=== PATIENT | female | born 1940 | race Caucasian/White ===

== ENCOUNTER 2016-08-23 10:55 | Emergency (ER) | payer MEDICARE, OTHER ==
[2016-08-23] MEDS ORDERED: Sodium Chloride 0.9% 2.5 ML Syringe FLUSH PRN ×2 (11:16)
[2016-08-23] MEDS ORDERED: Sodium Chloride 0.9% 10 ML Syringe FLUSH PRN ×2 (11:16)
[2016-08-23] MEDS ORDERED: Sodium Chloride 0.9% 1,000 ML IV ONE (11:16)
--- NOTE | 2016-08-23 11:18 | EDM.PDOC ---
ED HPI GENERAL MEDICAL PROBLEM - General Chief Complaint: Neuro Symptoms/Deficits Stated Complaint: DIZZY Time Seen by Provider: 08/23/16 11:15 Source of Information: Reports: Patient History Limitations: Reports: No Limitations - History of Present Illness INITIAL COMMENTS - FREE TEXT/NARRATIVE: HISTORY AND PHYSICAL: History of present illness: [75-year-old female complaining of dizziness with room spinning today. She has no prior history of vertigo. She has no cold symptoms or ear pain. Symptoms started today and it's worse when she moves her head. She has no history of intracranial pathology. Patient otherwise feels well. No chest pain or shortness of breath.] Review of systems: As per history of present illness and below otherwise all systems reviewed and negative. Past medical history: As per history of present illness and as reviewed below otherwise noncontributory. Surgical history: As per history of present illness and as reviewed below otherwise noncontributory. Social history: No reported history of drug or alcohol abuse. Family history: As per history of present illness and as reviewed below otherwise noncontributory. Physical exam: HEENT: Atraumatic, normocephalic, pupils reactive, negative for conjunctival pallor or scleral icterus, mucous membranes moist, throat clear, neck supple, nontender, trachea midline. Lungs: Clear to auscultation, breath sounds equal bilaterally, chest nontender. Heart: S1S2, regular, negative for clicks, rubs, or JVD. Abdomen: Soft, nondistended, nontender. Negative for masses or hepatosplenomegaly. Negative for costovertebral tenderness. Pelvis: Stable nontender. Genitourinary: Deferred. Rectal: Deferred. Extremities: Atraumatic, negative for cords or calf pain. Neurovascular unremarkable. Neuro: Awake, alert, oriented. Cranial nerves II through XII unremarkable. Cerebellum unremarkable. Motor and sensory unremarkable throughout. Exam nonfocal. Diagnostics: [EKG with normal sinus rhythm at 67 LAD no STEMI] Chest x-ray no acute disease report reviewed Therapeutics: [Meclizine given] Impression: [] Plan: Signs and symptoms consistent with peripheral vertigo in a patient with reproducible dizziness. Full workup unremarkable. CT pending. If unremarkable patient agrees with outpatient follow-up meclizine will be prescribed and strict return precautions given. Vital signs are stable for outpatient follow- up.] Definitive disposition and diagnosis as appropriate pending reevaluation and review of above. - Related Data Allergies Allergy/AdvReac Type Severity Reaction Status Date / Time dimenhydrinate Allergy Itching Verified 08/23/16 11:14 [From Dramamine] naproxen Allergy Itching Verified 08/23/16 11:14 Penicillins Allergy Itching Verified 08/23/16 11:14 Home Meds: Home Meds Aspirin [Shelia Chewable Aspirin] 81 mg PO DAILY 09/02/13 [History] Clopidogrel [Plavix] 75 mg PO DAILY 09/02/13 [History] Rosuvastatin [Crestor] 5 mg PO BEDTIME 09/02/13 [History] amLODIPine/Benazepril [Lotrel 5-10 MG] 1 cap PO DAILY 09/02/13 [History] Cholecalciferol (Vitamin D3) [Vitamin D3] 5,000 unit PO DAILY 05/23/15 [History] Cream Base No.193 [Versatile] 500 gm TP BID 05/23/15 [History] Docusate Sodium [Stool Softener] 100 mg PO DAILY PRN 05/23/15 [History] Escitalopram Oxalate 10 mg PO DAILY 05/23/15 [History] traZODone 100 mg PO BEDTIME PRN 05/23/15 [History] Cyclobenzaprine [Flexeril] 1 tab PO BEDTIME PRN 12/24/15 [History] Meclizine [Antivert] 25 mg PO Q6H PRN #24 tablet 08/23/16 [Rx] Past Medical History HEENT History: Reports: Cataract, Sinusitis Cardiovascular History: Reports: High Cholesterol, Hypertension Respiratory History: Reports: None Gastrointestinal History: Reports: Cholelithiasis Genitourinary History: Reports: None 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: Musculoskeletal History: Reports: Arthritis Neurological History: Reports: TIA Psychiatric History: Reports: Depression Endocrine/Metabolic History: Reports: Osteoporosis Hematologic History: Reports: None Immunologic History: Reports: None Oncologic (Cancer) History: Reports: None Dermatologic History: Reports: None - Infectious Disease History Infectious Disease History: Reports: None - Past Surgical History HEENT Surgical History: Reports: Cataract Surgery GI Surgical History: Reports: Other (See Below) Musculoskeletal Surgical History: Reports: Joint Replacement, Other (See Below) Social & Family History - Family History Family Medical History: Noncontributory Oncologic: Reports: Other (See Below) Other Oncologic Family History: stomach - Tobacco Use Smoking Status *Q: Never Smoker Years of Tobacco use: 40 Second Hand Smoke Exposure: No - Caffeine Use Caffeine Use: Reports: None - Recreational Drug Use Recreational Drug Use: No ED ROS GENERAL - Review of Systems Review Of Systems: See Below (History of present illness) ED EXAM, GENERAL - Physical Exam Exam: See Below (History of present illness) Course - Vital Signs Last Recorded V/S: Last Vital Signs Temp 36.7 C 08/23/16 11:14 Pulse 65 08/23/16 12:24 Resp 20 08/23/16 12:24 BP 101/58 L 08/23/16 12:24 Pulse Ox 94 L 08/23/16 12:24 - Orders/Labs/Meds Orders: Active Orders 24 hr Category Date Time Status EKG Documentation Completion [RC] STAT Care 08/23/16 11:16 Active Peripheral IV Care [RC] . DIRECTED Care 08/23/16 11:16 Active Head wo Cont [CT] Stat Exams 08/23/16 13:08 Ordered Sodium Chloride 0.9% [Saline Flush] Med 08/23/16 11:16 Active 10 ml FLUSH ASDIRECTED PRN Sodium Chloride 0.9% [Saline Flush] Med 08/23/16 11:16 Active 10 ml FLUSH ASDIRECTED PRN Sodium Chloride 0.9% [Saline Flush] Med 08/23/16 11:16 Active 2.5 ml FLUSH ASDIRECTED PRN Sodium Chloride 0.9% [Saline Flush] Med 08/23/16 11:16 Active 2.5 ml FLUSH ASDIRECTED PRN Peripheral IV Insertion Adult [OM.PC] Stat Oth 08/23/16 11:16 Ordered Medication Orders Sodium Chloride (Saline Flush) 10 ml FLUSH ASDIRECTED PRN PRN Reason: Keep Vein Open Sodium Chloride (Saline Flush) 2.5 ml FLUSH ASDIRECTED PRN PRN Reason: Keep Vein Open Sodium Chloride (Saline Flush) 10 ml FLUSH ASDIRECTED PRN PRN Reason: Keep Vein Open Sodium Chloride (Saline Flush) 2.5 ml FLUSH ASDIRECTED PRN PRN Reason: Keep Vein Open Labs: Laboratory Tests 08/23/16 08/23/16 08/23/16 Range/Units 11:26 11:26 11:26 WBC 6.02 (4.0-11.0) K/uL RBC 4.96 (4.30-5.90) M/uL Hgb 14.3 (12.0-16.0) g/dL Hct 43.2 (36.0-46.0) % MCV 87.1 (80.0-98.0) fL MCH 28.8 (27.0-32.0) pg MCHC 33.1 (31.0-37.0) g/dL RDW Std Deviation 50.3 (28.0-62.0) fl RDW Coeff of Yaneth 16 H (11.0-15.0) % Plt Count 266 (150-400) K/uL MPV 9.70 (7.40-12.00) fL Neut % (Auto) 60.4 (48.0-80.0) % Lymph % (Auto) 31.6 (16.0-40.0) % [place] % (Auto) 5.3 (0.0-15.0) % Eos % (Auto) 1.7 (0.0-7.0) % Baso % (Auto) 1.0 (0.0-1.5) % Neut # (Auto) 3.6 (1.4-5.7) K/uL Lymph # (Auto) 1.9 (0.6-2.4) K/uL [place] # (Auto) 0.3 (0.0-0.8) K/uL Eos # (Auto) 0.1 (0.0-0.7) K/uL Baso # (Auto) 0.1 (0.0-0.1) K/uL Nucleated RBC % 0.0 /100WBC Nucleated RBCs # 0 K/uL Sodium 140 (136-146) mmol/L Potassium 3.7 (3.5-5.1) mmol/L Chloride 108 (98-110) mmol/L Carbon Dioxide 23 (21-31) mmol/L BUN 11 (6.0-23.0) mg/dL Creatinine 0.8 (0.6-1.5) mg/dL Est Cr Clr Drug Dosing 58.63 mL/min Estimated GFR (MDRD) > 60.0 ml/min Glucose 111 H (60-110) mg/dL Calcium 9.1 (8.8-10.8) mg/dL Total Bilirubin 0.5 (0.1-1.5) mg/dL AST 20 (5-40) IU/L ALT 17 (8-54) IU/L Alkaline Phosphatase 71 (40-150) Troponin I < 0.10 (0.0-0.29) NG/ML Total Protein 7.6 (6.0-8.0) g/dL Albumin 4.5 (3.4-4.8) g/dL Globulin 3.1 (2.0-3.5) g/dL Albumin/Globulin Ratio 1.5 (1.3-2.8) Urine Color Urine Appearance Urine pH (5.0-8.0) Ur Specific [place] (1.001-1.035) Urine Protein (NEGATIVE) mg/dL Urine Glucose (UA) (NEGATIVE) mg/dL Urine Ketones (NEGATIVE) mg/dL Urine Occult Blood (NEGATIVE) Urine Nitrite (NEGATIVE) Urine Bilirubin (NEGATIVE) Urine Urobilinogen (<2.0) EU/dL Ur Leukocyte Esterase (NEGATIVE) Urine RBC (0-2/HPF) Urine WBC (0-5/HPF) Ur Epithelial Cells (NONE-FEW) Urine Bacteria (NEGATIVE) 08/23/16 Range/Units 12:28 WBC (4.0-11.0) K/uL RBC (4.30-5.90) M/uL Hgb (12.0-16.0) g/dL Hct (36.0-46.0) % MCV (80.0-98.0) fL MCH (27.0-32.0) pg MCHC (31.0-37.0) g/dL RDW Std Deviation (28.0-62.0) fl RDW Coeff of [place] (11.0-15.0) % Plt Count (150-400) K/uL MPV (7.40-12.00) fL Neut % (Auto) (48.0-80.0) % Lymph % (Auto) (16.0-40.0) % [place] % (Auto) (0.0-15.0) % Eos % (Auto) (0.0-7.0) % Baso % (Auto) (0.0-1.5) % Neut # (Auto) (1.4-5.7) K/uL Lymph # (Auto) (0.6-2.4) K/uL [place] # (Auto) (0.0-0.8) K/uL Eos # (Auto) (0.0-0.7) K/uL Baso # (Auto) (0.0-0.1) K/uL Nucleated RBC % /100WBC Nucleated RBCs # K/uL Sodium (136-146) mmol/L Potassium (3.5-5.1) mmol/L Chloride (98-110) mmol/L Carbon Dioxide (21-31) mmol/L BUN (6.0-23.0) mg/dL Creatinine (0.6-1.5) mg/dL Est Cr Clr Drug Dosing mL/min Estimated GFR (MDRD) ml/min Glucose (60-110) mg/dL Calcium (8.8-10.8) mg/dL Total Bilirubin (0.1-1.5) mg/dL AST (5-40) IU/L ALT (8-54) IU/L Alkaline Phosphatase (40-150) Troponin I (0.0-0.29) NG/ML Total Protein (6.0-8.0) g/dL Albumin (3.4-4.8) g/dL Globulin (2.0-3.5) g/dL Albumin/Globulin Ratio (1.3-2.8) Urine Color YELLOW Urine Appearance CLEAR Urine pH 5.5 (5.0-8.0) Ur Specific [place] <= 1.005 (1.001-1.035) Urine Protein NEGATIVE (NEGATIVE) mg/dL Urine Glucose (UA) NEGATIVE (NEGATIVE) mg/dL Urine Ketones NEGATIVE (NEGATIVE) mg/dL Urine Occult Blood NEGATIVE (NEGATIVE) Urine Nitrite NEGATIVE (NEGATIVE) Urine Bilirubin NEGATIVE (NEGATIVE) Urine Urobilinogen 0.2 (<2.0) EU/dL Ur Leukocyte Esterase NEGATIVE (NEGATIVE) Urine RBC 0-2 (0-2/HPF) Urine WBC 0-1 (0-5/HPF) Ur Epithelial Cells FEW (NONE-FEW) Urine Bacteria FEW (NEGATIVE) Meds: Medications Generic Name Dose Route Start Last Admin Trade Name Freq PRN Reason Stop Dose Admin Sodium Chloride 10 ml 08/23/16 11:16 Saline Flush FLUSH ASDIRECTED PRN Keep Vein Open Sodium Chloride 2.5 ml 08/23/16 11:16 Saline Flush FLUSH ASDIRECTED PRN Keep Vein Open Sodium Chloride 10 ml 08/23/16 11:16 Saline Flush FLUSH ASDIRECTED PRN Keep Vein Open Sodium Chloride 2.5 ml 08/23/16 11:16 Saline Flush FLUSH ASDIRECTED PRN Keep Vein Open Discontinued Medications Generic Name Dose Route Start Last Admin Trade Name Philip PRN Reason Stop Dose Admin Sodium Chloride 1,000 mls @ 999 mls/hr 08/23/16 11:16 08/23/16 11:40 Normal Saline IV 08/23/16 12:16 999 mls/hr .Bolus ONE Administration Meclizine HCl 25 mg 08/23/16 11:39 08/23/16 11:44 Antivert PO 08/23/16 11:40 25 mg ONETIME ONE Administration Departure - Departure Time of Disposition: 13:17 Disposition: Home, Self-Care 01 Condition: good Clinical Impression: Vertigo - Discharge Information Referrals: Xenia Daniel DO [Primary Care Provider] - Forms: ED Department Discharge Additional Instructions: Your findings today are consistent with vertigo. Use meclizine as prescribed as needed for dizziness. Be appropriately careful when ambulating standing etc. Do not just up in a situation where dizziness might create a danger. Do not operate her car or machinery if you're feeling dizzy. Follow-up with your tomorrow and return immediately for new severe or worsening symptoms. - My Orders Last 24 Hours: My Active Orders 08/23/16 11:16 EKG Documentation Completion [RC] STAT Peripheral IV Care [RC] . DIRECTED Sodium Chloride 0.9% [Saline Flush] 10 ml FLUSH ASDIRECTED PRN Sodium Chloride 0.9% [Saline Flush] 10 ml FLUSH ASDIRECTED PRN Sodium Chloride 0.9% [Saline Flush] 2.5 ml FLUSH ASDIRECTED PRN Sodium Chloride 0.9% [Saline Flush] 2.5 ml FLUSH ASDIRECTED PRN Peripheral IV Insertion Adult [OM.PC] Stat 08/23/16 13:08 Head wo Cont [CT] Stat - Assessment/Plan Last 24 Hours: My Active Orders 08/23/16 11:16 EKG Documentation Completion [RC] STAT Peripheral IV Care [RC] . DIRECTED Sodium Chloride 0.9% [Saline Flush] 10 ml FLUSH ASDIRECTED PRN Sodium Chloride 0.9% [Saline Flush] 10 ml FLUSH ASDIRECTED PRN Sodium Chloride 0.9% [Saline Flush] 2.5 ml FLUSH ASDIRECTED PRN Sodium Chloride 0.9% [Saline Flush] 2.5 ml FLUSH ASDIRECTED PRN Peripheral IV Insertion Adult [OM.PC] Stat 08/23/16 13:08 Head wo Cont [CT] Stat
[2016-08-23] MEDS ORDERED: Meclizine 25 MG Tab PO ONE (11:39)
[2016-08-23 11:58] LABS: CHLORIDE,CL 108 mmol/L (98-110); SODIUM,NA 140 mmol/L (136-146)
--- NOTE | 2016-08-23 12:31 | CR ---
EXAMINATION: Portable chest radiograph. HISTORY: Chest. FINDINGS: The trachea is midline. The cardiomediastinal silhouette is within normal limits. No pulmonary infil trates, effusions or pneumothorax. Mild chronic interstitial prominence. Mild aortic calcifications are noted. Osseous structures appear osteopenic. IMPRESSION: No acute cardiopulmonary process.
--- NOTE | 2016-08-23 13:48 | CT ---
EXAMINATION: Non contrast CT head. Coronal and sagittal reformats. HISTORY: Pain FINDINGS: No evidence of intra or extra axial hemorrhage, mass, midline shift, hydrocephalus or edema. Mild p eriventricular and subcortical white matter hypodensities are noted. No hypoattenuation changes in the major vascular territories to suggest acute infarct. No abnormal intracranial calcifications are detected. No evidence of substantial vascular calcifica tions. Paranasal sinuses and mastoid air cells are well aerated without substantial findings. Pituitary fossa appears unremarkable. Calvarium is intact. No evidence of skull fracture. IMPRESSION: 1. No acute intracranial findings. 2. Mild small vessel ischemic changes.
[2016-08-23 14:23] VITALS: BP 121/67
== END 2016-08-23 14:14 | disposition home or self-care (01) ==
LOC: MW.ED 10:55
DX: R42 Dizziness and giddiness (principal); I10 Essential (primary) hypertension; E78.00 Pure hypercholesterolemia, unspecified; F32.9 Major depressive disorder, single episode, unspecified; M81.0 Age-related osteoporosis without current pathological fracture; M19.90 Unspecified osteoarthritis, unspecified site; Z98.49 Cataract extraction status, unspecified eye; Z98.890 Other specified postprocedural states; Z86.73 Personal history of transient ischemic attack (TIA), and cerebral infarction without residual deficits; Z79.82 Long term (current) use of aspirin; Z79.02 Long term (current) use of antithrombotics/antiplatelets; Z79.899 Other long term (current) drug therapy; Z88.0 Allergy status to penicillin; Z88.8 Allergy status to other drugs, medicaments and biological substances
CPT/HCPCS: 70450; 71010; 80053; 81001; 84484; 85025; 93005; 96360; 99285; A9270; J7040; 99284

== ENCOUNTER 2016-09-14 00:37 | Observation (INO) | payer MEDICARE, OTHER ==
[2016-09-14] MEDS ORDERED: Ondansetron 4 MG/2 ML SDV IVPUSH ONE (00:48)
[2016-09-14] MEDS ORDERED: Pantoprazole 40 MG in Sodium Chloride 0.9% 10 ML IVPUSH ONE (00:53)
--- NOTE | 2016-09-14 00:56 | EDM.PDOC ---
ED HPI GENERAL MEDICAL PROBLEM - General Chief Complaint: Abdominal Pain Stated Complaint: VOMITING BLOOD Time Seen by Provider: 09/14/16 00:54 - History of Present Illness INITIAL COMMENTS - FREE TEXT/NARRATIVE: HISTORY AND PHYSICAL: History of present illness: Patient 75-year-old female presents with epigastric discomfort described as a burning with emesis times several with small amount of blood she denies melena hematochezia denies history of ulcer disease she states she has had reflux and is on Prilosec. She denies chest pain shortness of breath palpitations or other concern Review of systems: As per history of present illness and below otherwise all systems reviewed and negative. Past medical history: As per history of present illness and as reviewed below otherwise noncontributory. Surgical history: As per history of present illness and as reviewed below otherwise noncontributory. Social history: No reported history of drug or alcohol abuse. Family history: As per history of present illness and as reviewed below otherwise noncontributory. Physical exam: HEENT: Atraumatic, normocephalic, pupils reactive, negative for conjunctival pallor or scleral icterus, mucous membranes moist, throat clear, neck supple, nontender, trachea midline. Lungs: Clear to auscultation, breath sounds equal bilaterally, chest nontender. Heart: S1S2, regular, negative for clicks, rubs, or JVD. Abdomen: Soft, nondistended, nontender. Negative for masses or hepatosplenomegaly. Negative for costovertebral tenderness. Pelvis: Stable nontender. Genitourinary: Deferred. Rectal: Deferred. Extremities: Atraumatic, negative for cords or calf pain. Neurovascular unremarkable. Neuro: Awake, alert, oriented. Cranial nerves II through XII unremarkable. Cerebellum unremarkable. Motor and sensory unremarkable throughout. Exam nonfocal. Diagnostics: CBC CMP PT/INR troponin chest x-ray EKG type and screen Therapeutics: Normal saline 1 L bolus Protonix 80 mg IV Zofran 4 mg IV Impression: #1 epigastric abdominal pain #2 history of hematemesis Definitive disposition and diagnosis as appropriate pending reevaluation and review of above. epigastric Pain Score (Numeric/FACES): 8 - Related Data Allergies Allergy/AdvReac Type Severity Reaction Status Date / Time dimenhydrinate Allergy Itching Verified 09/14/16 00:44 [From Dramamine] naproxen Allergy Itching Verified 09/14/16 00:44 Penicillins Allergy Itching Verified 09/14/16 00:44 Home Meds: Home Meds Aspirin [Shelia Chewable] 81 mg PO DAILY 09/14/16 [History] Clopidogrel [Plavix] 75 mg PO DAILY 09/14/16 [History] Docusate Sodium [Dulcolax Stool Softener] 0 mg PO DAILY 09/14/16 [History] Escitalopram [Lexapro] 10 mg PO BEDTIME 09/14/16 [History] [place] Q Plus 100 With Reveratrol 1 tab PO DAILY 09/14/16 [History] [place]-3 Joint Relief With Tumeric 1 tab PO DAILY 09/14/16 [History] Omeprazole Magnesium [Prilosec Otc] 09/14/16 [History] Rosuvastatin Calcium 5 mg PO DAILY 09/14/16 [History] amLODIPine [Norvasc] 10 mg PO DAILY 09/14/16 [History] traZODone 200 mg PO BEDTIME 09/14/16 [History] Past Medical History HEENT History: Reports: Cataract, Sinusitis Cardiovascular History: Reports: High Cholesterol, Hypertension Respiratory History: Reports: None Gastrointestinal History: Reports: Cholelithiasis Genitourinary History: Reports: None 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: Musculoskeletal History: Reports: Arthritis Neurological History: Reports: TIA Psychiatric History: Reports: Depression Endocrine/Metabolic History: Reports: Osteoporosis Hematologic History: Reports: None Immunologic History: Reports: None Oncologic (Cancer) History: Reports: None Dermatologic History: Reports: None - Infectious Disease History Infectious Disease History: Reports: Chicken Pox, Measles, Mumps - Past Surgical History Head Surgeries/Procedures: Reports: None HEENT Surgical History: Reports: Cataract Surgery GI Surgical History: Reports: Other (See Below) Musculoskeletal Surgical History: Reports: Joint Replacement, Other (See Below) Social & Family History - Family History Family Medical History: Noncontributory Oncologic: Reports: Other (See Below) Other Oncologic Family History: stomach - Tobacco Use Smoking Status *Q: Never Smoker Years of Tobacco use: 40 Used Tobacco, but Quit: Yes Month Tobacco Last Used: unknown Second Hand Smoke Exposure: No - Caffeine Use Caffeine Use: Reports: None - Recreational Drug Use Recreational Drug Use: No ED ROS GENERAL - Review of Systems Review Of Systems: ROS reveals no pertinent complaints other than HPI. ED EXAM, GENERAL - Physical Exam Exam: See Below Course - Vital Signs Last Recorded V/S: Last Vital Signs Temp 36.9 C 09/15/16 04:00 Pulse 57 L 09/15/16 04:00 Resp 18 09/15/16 04:00 BP 114/55 L 09/15/16 04:00 Pulse Ox 96 09/15/16 04:00 - Orders/Labs/Meds Orders: Medication Orders Escitalopram Oxalate (Lexapro) 10 mg PO BEDTIME VIJAY Last Admin: 09/14/16 22:20 Dose: 10 mg Sodium Chloride (Normal Saline) 1,000 mls @ 999 mls/hr IV ASDIRECTED VIJAY Last Admin: 09/14/16 00:55 Dose: 999 mls/hr Pantoprazole Sodium 80 mg/ (Sodium Chloride) 100 mls @ 10 mls/hr IV Q10H VIJAY Last Admin: 09/14/16 23:19 Dose: 10 mls/hr Infusion: 09/14/16 23:18 Dose: 10 mls/hr Admin: 09/14/16 12:37 Dose: 10 mls/hr Infusion: 09/14/16 12:37 Dose: 10 mls/hr Admin: 09/14/16 02:56 Dose: 10 mls/hr Sodium Chloride (Normal Saline) 1,000 mls @ 125 mls/hr IV ASDIRECTED VIJAY Last Admin: 09/15/16 03:09 Dose: 125 mls/hr Infusion: 09/15/16 03:07 Dose: 125 mls/hr Admin: 09/14/16 19:07 Dose: 125 mls/hr Infusion: 09/14/16 18:57 Dose: 125 mls/hr Admin: 09/14/16 10:57 Dose: 125 mls/hr Infusion: 09/14/16 10:48 Dose: 125 mls/hr Admin: 09/14/16 02:48 Dose: 125 mls/hr Trazodone HCl (Trazodone) 200 mg PO BEDTIME VIJAY Last Admin: 09/14/16 22:20 Dose: 200 mg Meds: Medications Generic Name Dose Route Start Last Admin Trade Name Freq PRN Reason Stop Dose Admin Escitalopram Oxalate 10 mg 09/14/16 22:02 09/14/16 22:20 Lexapro PO 10 mg BEDTIME VIJAY Administration Sodium Chloride 1,000 mls @ 999 mls/hr 09/14/16 01:00 09/14/16 00:55 Normal Saline IV 999 mls/hr ASDIRECTED VIJAY Administration Pantoprazole Sodium 80 mg/ 100 mls @ 10 mls/hr 09/14/16 02:30 09/14/16 23:19 Sodium Chloride IV 10 mls/hr Q10H VIJAY Administration Sodium Chloride 1,000 mls @ 125 mls/hr 09/14/16 02:30 09/15/16 03:09 Normal Saline IV 125 mls/hr ASDIRECTED VIJAY Administration Trazodone HCl 200 mg 09/14/16 22:02 09/14/16 22:20 Trazodone PO 200 mg BEDTIME VIJAY Administration Discontinued Medications Generic Name Dose Route Start Last Admin Trade Name Freq PRN Reason Stop Dose Admin Pantoprazole Sodium 40 mg/ 10 mls @ 300 mls/hr 09/14/16 00:53 09/14/16 01:11 Sodium Chloride IVPUSH 09/14/16 00:54 300 mls/hr NOW ONE Administration Ondansetron HCl 4 mg 09/14/16 00:48 09/14/16 00:54 Zofran IVPUSH 09/14/16 00:49 4 mg ONETIME ONE Administration Departure - Departure Time of Disposition: 01:30 Disposition: Admitted As Inpatient 68 Condition: Good Clinical Impression: Abdominal pain - Discharge Information
[2016-09-14] MEDS ORDERED: Sodium Chloride 0.9% 1,000 ML IV SCH (01:00)
[2016-09-14 01:35] LABS: CHLORIDE,CL 110 mmol/L (98-110); SODIUM,NA 140 mmol/L (136-146)
[2016-09-14] MEDS: Sodium Chloride 0.9% 1,000 ML IV SCH ×3 (02:48→19:07)
[2016-09-14] MEDS: Pantoprazole 80 MG in Sodium Chloride 0.9% 100 ML IV SCH ×3 (02:56→23:19)
[2016-09-14 05:58] LABS: CHLORIDE,CL 116 mmol/L (98-110); SODIUM,NA 142 mmol/L (136-146)
--- NOTE | 2016-09-14 10:46 | PCM.HP ---
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 She has been having episodic epigastric pain x 1 month. She had episodes of hemetemesis and epigastric pain. She has a history of GERD on pepcid. She denies fever, chills, sob, chest pain, dysuria, frequency, urgency, palpitations, fatigue, n/v /d, melena or dark colored stools. epigastric Pain Score (Numeric/FACES): 2 - Related Data Allergies/Adverse Reactions: Allergies Allergy/AdvReac Type Severity Reaction Status Date / Time dimenhydrinate Allergy Itching Verified 09/14/16 00:44 [From Dramamine] naproxen Allergy Itching Verified 09/14/16 00:44 Penicillins Allergy Itching Verified 09/14/16 00:44 Home Medications: Home Meds Aspirin [Shelia Chewable] 81 mg PO DAILY 09/14/16 [History] Clopidogrel [Plavix] 75 mg PO DAILY 09/14/16 [History] Docusate Sodium [Dulcolax Stool Softener] 0 mg PO DAILY 09/14/16 [History] Escitalopram [Lexapro] 10 mg PO BEDTIME 09/14/16 [History] [place] Q Plus 100 With Reveratrol 1 tab PO DAILY 09/14/16 [History] [place]-3 Joint Relief With Tumeric 1 tab PO DAILY 09/14/16 [History] Omeprazole Magnesium [Prilosec Otc] 09/14/16 [History] Rosuvastatin Calcium 5 mg PO DAILY 09/14/16 [History] amLODIPine [Norvasc] 10 mg PO DAILY 09/14/16 [History] traZODone 200 mg PO BEDTIME 09/14/16 [History] Past Medical History HEENT History: Reports: Cataract, Sinusitis Cardiovascular History: Reports: High Cholesterol, Hypertension Respiratory History: Reports: None Gastrointestinal History: Reports: Cholelithiasis Genitourinary History: Reports: None [employer] History: Reports: Musculoskeletal History: Reports: Arthritis Neurological History: Reports: TIA Psychiatric History: Reports: Depression Endocrine/Metabolic History: Reports: Osteoporosis Hematologic History: Reports: None Immunologic History: Reports: None Oncologic (Cancer) History: Reports: None Dermatologic History: Reports: None - Infectious Disease History Infectious Disease History: Reports: Chicken Pox, Measles, Mumps - Past Surgical History Head Surgeries/Procedures: Reports: None HEENT Surgical History: Reports: Cataract Surgery Cardiovascular Surgical History: Reports: None Respiratory Surgical History: Reports: None GI Surgical History: Reports: Other (See Below) Female Surgical History: Reports: None Musculoskeletal Surgical History: Reports: Joint Replacement, Other (See Below) Social & Family History - Family History Family Medical History: Noncontributory Cardiac: Reports: None Respiratory: Reports: None GI: Reports: None : Reports: None OBGYN: Reports: None Musculoskeletal: Reports: None Neurological: Reports: None Psychiatric: Reports: None Endocrine/Metabolic: Reports: None Hematologic: Reports: None Immunologic: Reports: None Dermatologic: Reports: None Oncologic: Reports: Other (See Below) Other Oncologic Family History: stomach - Tobacco Use Smoking Status *Q: Never Smoker Years of Tobacco use: 40 Used Tobacco, but Quit: Yes Month Tobacco Last Used: unknown Second Hand Smoke Exposure: No - Caffeine Use Caffeine Use: Reports: Coffee - Recreational Drug Use Recreational Drug Use: No H&P Review of Systems - Review of Systems: Review Of Systems: See Below General: Reports: No Symptoms HEENT: Reports: No Symptoms Pulmonary: Reports: No Symptoms Cardiovascular: Reports: No Symptoms Gastrointestinal: Reports: Abdominal Pain, Hematemesis Genitourinary: Reports: No Symptoms Musculoskeletal: Reports: No Symptoms Skin: Reports: No Symptoms Psychiatric: Reports: No Symptoms Neurological: Reports: No Symptoms Exam - Exam Exam: See Below - Vital Signs Vital Signs: Last Vital Signs Temp 97.3 F 09/14/16 08:00 Pulse 67 09/14/16 08:00 Resp 20 09/14/16 08:00 BP 116/68 09/14/16 08:00 Pulse Ox 93 L 09/14/16 08:00 Weight: 99.1 kg - Exam General: Alert, Oriented HEENT: Conjunctiva Clear, EOMI, Other (NO pallor) Neck: Supple, Trachea Midline Lungs: Clear to Auscultation, Normal Respiratory Effort Cardiovascular: Regular Rate, Regular Rhythm Abdomen: Normal Bowel Sounds, Soft Extremities: Normal Inspection Skin: Warm, Dry, Intact Neurological: Cranial Nerves Intact Psychiatric: Alert, Normal Affect, Normal Mood - Patient Data Lab Results Last 24 hrs: Laboratory Results - last 24 hr 09/14/16 09/14/16 09/14/16 Range/Units 01:00 01:00 01:00 WBC 10.65 (4.0-11.0) K/uL RBC 4.43 (4.30-5.90) M/uL Hgb 12.8 (12.0-16.0) g/dL Hct 38.8 (36.0-46.0) % MCV 87.6 (80.0-98.0) fL MCH 28.9 (27.0-32.0) pg MCHC 33.0 (31.0-37.0) g/dL RDW Std Deviation 48.6 (28.0-62.0) fl RDW Coeff of Yaneth 16 H (11.0-15.0) % Plt Count 279 (150-400) K/uL MPV 9.90 (7.40-12.00) fL Neut % (Auto) 67.5 (48.0-80.0) % Lymph % (Auto) 24.2 (16.0-40.0) % [place] % (Auto) 6.3 (0.0-15.0) % Eos % (Auto) 1.3 (0.0-7.0) % Baso % (Auto) 0.7 (0.0-1.5) % Neut # (Auto) 7.2 H (1.4-5.7) K/uL Lymph # (Auto) 2.6 H (0.6-2.4) K/uL [place] # (Auto) 0.7 (0.0-0.8) K/uL Eos # (Auto) 0.1 (0.0-0.7) K/uL Baso # (Auto) 0.1 (0.0-0.1) K/uL Nucleated RBC % /100WBC Nucleated RBCs # K/uL Sodium 140 (136-146) mmol/L Potassium 4.0 (3.5-5.1) mmol/L Chloride 110 (98-110) mmol/L Carbon Dioxide 18 L (21-31) mmol/L BUN 20 (6.0-23.0) mg/dL Creatinine 0.8 (0.6-1.5) mg/dL Est Cr Clr Drug Dosing 58.63 mL/min Estimated GFR (MDRD) > 60.0 ml/min Glucose 123 H (60-110) mg/dL Calcium 9.0 (8.8-10.8) mg/dL Total Bilirubin 0.3 (0.1-1.5) mg/dL AST 19 (5-40) IU/L ALT 15 (8-54) IU/L Alkaline Phosphatase 70 (40-150) CK-MB (CK-2) 1.2 (0-6.6) ng/ml Troponin I < 0.10 (0.0-0.29) NG/ML Total Protein 6.8 (6.0-8.0) g/dL Albumin 3.8 (3.4-4.8) g/dL Globulin 3.0 (2.0-3.5) g/dL Albumin/Globulin Ratio 1.3 (1.3-2.8) Amylase 59 (10-90) U/L Lipase 48 (7-80) U/L Urine Color Urine Appearance Urine pH (5.0-8.0) Ur Specific [place] (1.001-1.035) Urine Protein (NEGATIVE) mg/dL Urine Glucose (UA) (NEGATIVE) mg/dL Urine Ketones (NEGATIVE) mg/dL Urine Occult Blood (NEGATIVE) Urine Nitrite (NEGATIVE) Urine Bilirubin (NEGATIVE) Urine Urobilinogen (<2.0) EU/dL Ur Leukocyte Esterase (NEGATIVE) Urine RBC (0-2/HPF) Urine WBC (0-5/HPF) Ur Epithelial Cells (NONE-FEW) Urine Bacteria (NEGATIVE) Blood Type Antibody Screen 09/14/16 09/14/16 09/14/16 Range/Units 01:00 05:28 05:28 WBC 9.04 (4.0-11.0) K/uL RBC 4.07 L (4.30-5.90) M/uL Hgb 11.9 L (12.0-16.0) g/dL Hct 35.6 L (36.0-46.0) % MCV 87.5 (80.0-98.0) fL MCH 29.2 (27.0-32.0) pg MCHC 33.4 (31.0-37.0) g/dL RDW Std Deviation 50.9 (28.0-62.0) fl RDW Coeff of Yaneth 16 H (11.0-15.0) % Plt Count 241 (150-400) K/uL MPV 9.70 (7.40-12.00) fL Neut % (Auto) 58.7 (48.0-80.0) % Lymph % (Auto) 31.9 (16.0-40.0) % [place] % (Auto) 7.3 (0.0-15.0) % Eos % (Auto) 1.4 (0.0-7.0) % Baso % (Auto) 0.7 (0.0-1.5) % Neut # (Auto) 5.3 (1.4-5.7) K/uL Lymph # (Auto) 2.9 H (0.6-2.4) K/uL [place] # (Auto) 0.7 (0.0-0.8) K/uL Eos # (Auto) 0.1 (0.0-0.7) K/uL Baso # (Auto) 0.1 (0.0-0.1) K/uL Nucleated RBC % 0.0 /100WBC Nucleated RBCs # 0 K/uL Sodium 142 (136-146) mmol/L Potassium 4.3 (3.5-5.1) mmol/L Chloride 116 H (98-110) mmol/L Carbon Dioxide 19 L (21-31) mmol/L BUN 17 (6.0-23.0) mg/dL Creatinine 0.7 (0.6-1.5) mg/dL Est Cr Clr Drug Dosing 67.01 mL/min Estimated GFR (MDRD) > 60.0 ml/min Glucose 103 (60-110) mg/dL Calcium 8.0 L (8.8-10.8) mg/dL Total Bilirubin (0.1-1.5) mg/dL AST (5-40) IU/L ALT (8-54) IU/L Alkaline Phosphatase (40-150) CK-MB (CK-2) (0-6.6) ng/ml Troponin I (0.0-0.29) NG/ML Total Protein (6.0-8.0) g/dL Albumin (3.4-4.8) g/dL Globulin (2.0-3.5) g/dL Albumin/Globulin Ratio (1.3-2.8) Amylase (10-90) U/L Lipase (7-80) U/L Urine Color Urine Appearance Urine pH (5.0-8.0) Ur Specific [place] (1.001-1.035) Urine Protein (NEGATIVE) mg/dL Urine Glucose (UA) (NEGATIVE) mg/dL Urine Ketones (NEGATIVE) mg/dL Urine Occult Blood (NEGATIVE) Urine Nitrite (NEGATIVE) Urine Bilirubin (NEGATIVE) Urine Urobilinogen (<2.0) EU/dL Ur Leukocyte Esterase (NEGATIVE) Urine RBC (0-2/HPF) Urine WBC (0-5/HPF) Ur Epithelial Cells (NONE-FEW) Urine Bacteria (NEGATIVE) Blood Type A POSITIVE Antibody Screen NEGATIVE 09/14/16 Range/Units 07:16 WBC (4.0-11.0) K/uL RBC (4.30-5.90) M/uL Hgb (12.0-16.0) g/dL Hct (36.0-46.0) % MCV (80.0-98.0) fL MCH (27.0-32.0) pg MCHC (31.0-37.0) g/dL RDW Std Deviation (28.0-62.0) fl RDW Coeff of Yaneth (11.0-15.0) % Plt Count (150-400) K/uL MPV (7.40-12.00) fL Neut % (Auto) (48.0-80.0) % Lymph % (Auto) (16.0-40.0) % [place] % (Auto) (0.0-15.0) % Eos % (Auto) (0.0-7.0) % Baso % (Auto) (0.0-1.5) % Neut # (Auto) (1.4-5.7) K/uL Lymph # (Auto) (0.6-2.4) K/uL [place] # (Auto) (0.0-0.8) K/uL Eos # (Auto) (0.0-0.7) K/uL Baso # (Auto) (0.0-0.1) K/uL Nucleated RBC % /100WBC Nucleated RBCs # K/uL Sodium (136-146) mmol/L Potassium (3.5-5.1) mmol/L Chloride (98-110) mmol/L Carbon Dioxide (21-31) mmol/L BUN (6.0-23.0) mg/dL Creatinine (0.6-1.5) mg/dL Est Cr Clr Drug Dosing mL/min Estimated GFR (MDRD) ml/min Glucose (60-110) mg/dL Calcium (8.8-10.8) mg/dL Total Bilirubin (0.1-1.5) mg/dL AST (5-40) IU/L ALT (8-54) IU/L Alkaline Phosphatase (40-150) CK-MB (CK-2) (0-6.6) ng/ml Troponin I (0.0-0.29) NG/ML Total Protein (6.0-8.0) g/dL Albumin (3.4-4.8) g/dL Globulin (2.0-3.5) g/dL Albumin/Globulin Ratio (1.3-2.8) Amylase (10-90) U/L Lipase (7-80) U/L Urine Color YELLOW Urine Appearance CLEAR Urine pH 5.5 (5.0-8.0) Ur Specific [place] 1.010 (1.001-1.035) Urine Protein NEGATIVE (NEGATIVE) mg/dL Urine Glucose (UA) NEGATIVE (NEGATIVE) mg/dL Urine Ketones NEGATIVE (NEGATIVE) mg/dL Urine Occult Blood NEGATIVE (NEGATIVE) Urine Nitrite NEGATIVE (NEGATIVE) Urine Bilirubin NEGATIVE (NEGATIVE) Urine Urobilinogen 0.2 (<2.0) EU/dL Ur Leukocyte Esterase NEGATIVE (NEGATIVE) Urine RBC NONE SEEN (0-2/HPF) Urine WBC 0-1 (0-5/HPF) Ur Epithelial Cells FEW (NONE-FEW) Urine Bacteria FEW (NEGATIVE) Blood Type Antibody Screen Result Diagrams: 09/14/16 05:28 09/14/16 05:28 *Q Meaningful Use (ADM) - VTE *Q VTE Criteria *Q: - Stroke *Q Stroke Criteria *Q: - AMI *Q AMI Criteria *Q: Problem List Initiated/Reviewed/Updated: Yes Orders Last 24hrs: Active Orders 24 hr Category Date Time Status Telemetry Monitoring [Cardiac Monitoring] [RC] Q8H Care 09/14/16 02:22 Active NPO [Nothing Per Oral Diet] [DIET] Diet 09/14/16 Breakfast Active Pantoprazole [ProTONIX IV] 80 mg Med 09/14/16 02:30 Active Sodium Chloride 0.9% [Normal Saline] 100 ml IV Q10H Sodium Chloride 0.9% [Normal Saline] 1,000 ml Med 09/14/16 02:30 Active IV ASDIRECTED Medication Orders Sodium Chloride (Normal Saline) 1,000 mls @ 999 mls/hr IV ASDIRECTED [facility] Last Admin: 09/14/16 00:55 Dose: 999 mls/hr Pantoprazole Sodium 80 mg/ (Sodium Chloride) 100 mls @ 10 mls/hr IV Q10H [facility] Last Admin: 09/14/16 02:56 Dose: 10 mls/hr Sodium Chloride (Normal Saline) 1,000 mls @ 125 mls/hr IV ASDIRECTED [facility] Last Admin: 09/14/16 02:48 Dose: 125 mls/hr Assessment/Plan Comment:: 75 yo female admitted for GIB HB 12.8 to 11.9. Hemaetemesis: resolved. start clear liquids IV protonix and IVF HOLD plavix and asa Discussed endoscopy to determine source of bleed. Patient would like it as outpatient.
--- NOTE | 2016-09-14 17:22 | CR ---
EXAM DATE: 09/14/16 PATIENT'S AGE: 75 Patient: AFIA ZEPEDA Facility: [place], [place] Site . Site : 1940 Study: XRay Chest [id number]/5/2017 1:25:53 AM Ordering Physician: Doctor Small Final Report: INDICATION: Epigastric pain TECHNIQUE: Chest radiograph 1 view COMPARISON: 08/23/2016 FINDINGS: Cardiovascular and mediastinum: The heart silhouette is normal in size and morphology. The mediastinum is normal in appearance. A small sliding type esophageal hiatal hernia (type I) is present without interval change. Lungs and pleural spaces: Both lungs are unremarkable in appearance. No sign of pleural effusion seen. No pneumothorax is identified. Bones and soft tissues: No significant findings. IMPRESSION: 1. No acute cardiopulmonary disease is seen. 2. A small sliding type esophageal hiatal hernia (type I) is present without interval change. Dictated by Jonatan Evans MD @ 09/14/2016 1:29:40 AM Dictated by: Jonatan Evans MD @ 09/14/2016 01:29:43 (Electronic Signature) Report Signed by Proxy. [facility] CAMPUSJeromy
[2016-09-14] MEDS ORDERED: Escitalopram 10 MG Tab PO SCH (22:02)
[2016-09-14] MEDS ORDERED: traZODone 50 MG Tab PO SCH (22:02)
[2016-09-15] MEDS: Sodium Chloride 0.9% 1,000 ML IV SCH (03:09)
[2016-09-15 05:39] LABS: CHLORIDE,CL 115 mmol/L (98-110); SODIUM,NA 143 mmol/L (136-146)
[2016-09-15 07:44] VITALS: BP 123/88
[2016-09-15] MEDS: Pantoprazole 80 MG in Sodium Chloride 0.9% 100 ML IV SCH (09:27)
--- NOTE | 2016-09-15 10:56 | PCM.DCSUM1 ---
<Kay May - Last Filed: 09/18/16 00:19> Discharge Summary - Hospital Course Free Text/Narrative:: 72-year-old female with history of GERD was taking Prilosec, CVA on plavix.admitted for GI bleed. She has been having epigastric discomfort x1 month. She has noticed hematemesis along with abdominal discomfort which brought her to the emergency room. She did not have any melena, hematochezia, shortness of breath, pallor, dizziness or palpitations. Her chest x-ray showed esophageal hiatal hernia. Her hemoglobin is 12.8. Her plavix was put on hold. She was N.p.o., IV Protonix drip, hydrated with fluids. Her epigastric discomfort has improved and she was slowly started on clear liquids and advance her diet where she tolerated. She chose to have endoscopy done as an outpatient. She was discharged in stable condition with protonix 40 mg twice a day. He may discontinue Prilosec. She is resume home medications including plavix due to prior history of CVA. She is to avoid all NSAIDs. She is to follow with PCP and have endoscopy as outpatient. - Discharge Data Discharge Date: 09/15/16 Discharge Disposition: Home, Self-Care 01 Condition: Fair - Patient Instructions Diet: Heart Healthy Diet Activity: As Tolerated Driving: May Drive Today Showering/Bathing: May Shower Notify Provider of: Fever, Increased Pain, Swelling and Redness, Drainage, Nausea and/or Vomiting - Discharge Plan Prescriptions/Med Rec: Pantoprazole Sodium [Protonix] 40 mg PO BID #60 tablet.dr Goyal Medications: Home Meds Clopidogrel [Plavix] 75 mg PO DAILY 09/14/16 [History] Docusate Sodium [Dulcolax Stool Softener] 0 mg PO DAILY 09/14/16 [History] Escitalopram [Lexapro] 10 mg PO BEDTIME 09/14/16 [History] [place] Q Plus 100 With Reveratrol 1 tab PO DAILY 09/14/16 [History] [place]-3 Joint Relief With Tumeric 1 tab PO DAILY 09/14/16 [History] Rosuvastatin Calcium 5 mg PO DAILY 09/14/16 [History] amLODIPine [Norvasc] 10 mg PO DAILY 09/14/16 [History] Pantoprazole Sodium [Protonix] 40 mg PO BID #60 tablet.dr 09/15/16 [Rx] Patient Handouts: Abdominal Pain, Adult, [id number], Pantoprazole tablets Referrals: Sri Landry MD [Physician] - 09/19/16 2:00 pm (Please check in at 1:45 p.m. ) Xenia Daniel DO [Primary Care Provider] - 09/23/16 8:00 am - General Info Date of Service: 09/15/16 Functional Status: Reports: pain controlled, tolerating diet, urinating - Review of Systems General: Reports: No Symptoms HEENT: Reports: no symptoms Pulmonary: Reports: no symptoms Cardiovascular: Reports: No Symptoms Gastrointestinal: Reports: No symptoms Genitourinary: Reports: no symptoms Musculoskeletal: Reports: no symptoms Skin: Reports: no symptoms Neurological: Reports: No Symptoms Psychiatric: Reports: no symptoms - Patient Data Vitals - Most Recent: Last Vital Signs Temp 98.4 F 09/15/16 08:00 Pulse 60 09/15/16 08:00 Resp 18 09/15/16 08:00 BP 123/88 09/15/16 08:00 Pulse Ox 93 L 09/15/16 08:00 Weight - Most Recent: 99.1 kg I&O - Last 24 hours: Intake & Output 09/14/16 09/15/16 09/15/16 22:59 06:59 14:59 Intake Total 2588 1570 100 Output Total 2500 4700 Balance 88 -3130 100 Lab Results - Last 24 hrs: Laboratory Results - last 24 hr 09/14/16 09/15/16 09/15/16 Range/Units 17:40 04:51 04:51 WBC 6.80 6.53 (4.0-11.0) K/uL RBC 4.04 L 4.12 L (4.30-5.90) M/uL Hgb 11.6 L 11.5 L (12.0-16.0) g/dL Hct 35.5 L 36.4 (36.0-46.0) % MCV 87.9 88.3 (80.0-98.0) fL MCH 28.7 27.9 (27.0-32.0) pg MCHC 32.7 31.6 (31.0-37.0) g/dL RDW Std Deviation 51.6 51.2 (28.0-62.0) fl RDW Coeff of Yaneth 16 H 16 H (11.0-15.0) % Plt Count 240 227 (150-400) K/uL MPV 9.80 9.50 (7.40-12.00) fL Neut % (Auto) 52.0 52.2 (48.0-80.0) % Lymph % (Auto) 38.4 39.8 (16.0-40.0) % [place] % (Auto) 6.3 5.4 (0.0-15.0) % Eos % (Auto) 2.4 2.0 (0.0-7.0) % Baso % (Auto) 0.9 0.6 (0.0-1.5) % Neut # (Auto) 3.5 3.4 (1.4-5.7) K/uL Lymph # (Auto) 2.6 H 2.6 H (0.6-2.4) K/uL [place] # (Auto) 0.4 0.4 (0.0-0.8) K/uL Eos # (Auto) 0.2 0.1 (0.0-0.7) K/uL Baso # (Auto) 0.1 0.0 (0.0-0.1) K/uL Nucleated RBC % 0.0 0.0 /100WBC Nucleated RBCs # 0 0 K/uL Sodium 143 (136-146) mmol/L Potassium 3.9 (3.5-5.1) mmol/L Chloride 115 H (98-110) mmol/L Carbon Dioxide 21 (21-31) mmol/L BUN 7 (6.0-23.0) mg/dL Creatinine 0.6 (0.6-1.5) mg/dL Est Cr Clr Drug Dosing 78.17 mL/min Estimated GFR (MDRD) > 60.0 ml/min Glucose 86 (60-110) mg/dL Calcium 7.9 L (8.8-10.8) mg/dL Med Orders - Current: Current Medications Escitalopram Oxalate (Lexapro) 10 mg PO BEDTIME [facility] Last Admin: 09/14/16 22:20 Dose: 10 mg Sodium Chloride (Normal Saline) 1,000 mls @ 999 mls/hr IV ASDIRECTED [facility] Last Admin: 09/14/16 00:55 Dose: 999 mls/hr Pantoprazole Sodium 80 mg/ (Sodium Chloride) 100 mls @ 10 mls/hr IV Q10H [facility] Last Admin: 09/15/16 09:27 Dose: 10 mls/hr Sodium Chloride (Normal Saline) 1,000 mls @ 125 mls/hr IV ASDIRECTED [facility] Last Admin: 09/15/16 03:09 Dose: 125 mls/hr Trazodone HCl (Trazodone) 200 mg PO BEDTIME [facility] Last Admin: 09/14/16 22:20 Dose: 200 mg Discontinued Medications Pantoprazole Sodium 40 mg/ (Sodium Chloride) 10 mls @ 300 mls/hr IVPUSH NOW ONE Stop: 09/14/16 00:54 Last Admin: 09/14/16 01:11 Dose: 300 mls/hr Ondansetron HCl (Zofran) 4 mg IVPUSH ONETIME ONE Stop: 09/14/16 00:49 Last Admin: 09/14/16 00:54 Dose: 4 mg - Exam General: Reports: alert, oriented HEENT: Reports: Pupils equal, EOMI Neck: Reports: supple, trachea midline Lungs: Reports: Clear to auscultation, Normal respiratory effort Cardiovascular: Reports: Regular Rate, Regular Rhythm Abdomen: Reports: bowel sounds present, soft, no tenderness Extremities: Reports: no edema Skin: Reports: warm, dry, intact Neurological: Reports: no new focal deficit Psy/Mental Status: Reports: alert, normal affect, normal mood *Q Meaningful Use (DIS) - VTE *Q VTE Criteria *Q: - Stroke *Q Stroke Criteria *Q: - AMI *Q AMI Criteria *Q: <Gianluca Lyon - Last Filed: 09/18/16 19:57> - Patient Data Vitals - Most Recent: Last Vital Signs Temp 36.9 C 09/15/16 08:00 Pulse 60 09/15/16 08:00 Resp 18 09/15/16 08:00 BP 123/88 09/15/16 08:00 Pulse Ox 93 L 09/15/16 08:00 Med Orders - Current: Current Medications Discontinued Medications Escitalopram Oxalate (Lexapro) 10 mg PO BEDTIME [facility] Last Admin: 09/14/16 22:20 Dose: 10 mg Pantoprazole Sodium 40 mg/ (Sodium Chloride) 10 mls @ 300 mls/hr IVPUSH NOW ONE Stop: 09/14/16 00:54 Last Admin: 09/14/16 01:11 Dose: 300 mls/hr Sodium Chloride (Normal Saline) 1,000 mls @ 999 mls/hr IV ASDIRECTED [facility] Last Admin: 09/14/16 00:55 Dose: 999 mls/hr Pantoprazole Sodium 80 mg/ (Sodium Chloride) 100 mls @ 10 mls/hr IV Q10H [facility] Last Admin: 09/15/16 09:27 Dose: 10 mls/hr Sodium Chloride (Normal Saline) 1,000 mls @ 125 mls/hr IV ASDIRECTED [facility] Last Admin: 09/15/16 03:09 Dose: 125 mls/hr Ondansetron HCl (Zofran) 4 mg IVPUSH ONETIME ONE Stop: 09/14/16 00:49 Last Admin: 09/14/16 00:54 Dose: 4 mg Trazodone HCl (Trazodone) 200 mg PO BEDTIME [facility] Last Admin: 09/14/16 22:20 Dose: 200 mg *Q Meaningful Use (DIS) - VTE *Q VTE Criteria *Q: - Stroke *Q Stroke Criteria *Q: - AMI *Q AMI Criteria *Q: - Free Text/Narrative Note: I have examined the patient. I have discussed findings and treatment plan with resident. I agree with the assessment and plan outlined in the following note.
== END 2016-09-15 11:25 | disposition home or self-care (01) ==
LOC: MW.ED 00:37 → MW.MS 00:56
PROVIDERS: ADMIT Internal Medicine; ATTEND Internal Medicine
DX: K92.0 Hematemesis (principal); K92.2 Gastrointestinal hemorrhage, unspecified; K44.9 Diaphragmatic hernia without obstruction or gangrene; K21.9 Gastro-esophageal reflux disease without esophagitis; E78.00 Pure hypercholesterolemia, unspecified; I10 Essential (primary) hypertension; M19.90 Unspecified osteoarthritis, unspecified site; F32.9 Major depressive disorder, single episode, unspecified; M81.0 Age-related osteoporosis without current pathological fracture; Z86.73 Personal history of transient ischemic attack (TIA), and cerebral infarction without residual deficits; Z79.02 Long term (current) use of antithrombotics/antiplatelets; Z79.82 Long term (current) use of aspirin; Z79.899 Other long term (current) drug therapy; Z88.0 Allergy status to penicillin; Z88.8 Allergy status to other drugs, medicaments and biological substances; Z98.890 Other specified postprocedural states
CPT/HCPCS: 36415; 71010; 80048; 80053; 81001; 82150; 82553; 83690; 84484; 85025; 86850; 86900; 86901; 93005; 96361; 96365; 96366; 96375; 99285; A9270; C9113; G0378; J2405; J7030; J7040; 96374; 99282

== ENCOUNTER 2019-05-29 11:13 | Observation (INO) | payer MEDICARE ==
[2019-05-29] MEDS ORDERED: Meclizine 25 MG Tab PO ONE (11:30)
--- NOTE | 2019-05-29 11:48 | EDM.PDOC ---
ED HPI GENERAL MEDICAL PROBLEM - General Chief Complaint: Neuro Symptoms/Deficits Stated Complaint: VERIGO Time Seen by Provider: 05/29/19 11:31 Source of Information: Reports: Patient History Limitations: Reports: No Limitations - History of Present Illness INITIAL COMMENTS - FREE TEXT/NARRATIVE: This 78 year old female is admitted to the ED with a chief complaint of dizziness after eating a muffin and watching [employer]. She states she was about to ride her stationary bike when it happened. She states that she has had this problem before and was given Antivert which helped. She states that she has had a TIA in the past but feels that this is not it. She complains of a frontal headache as well as pain into the left trap muscle. She denies any focal deficits at this time. She denies chest pain or SOB. No nausea or vomiting. She denies any other symptoms at this time. Onset: Sudden (dizziness this morning.) Location: Reports: Head (frontal headache with pain into the left trap muscle group.) Severity: Mild (dizziness) Associated Symptoms: Reports: Headaches (as noted above) Treatments GENETIC ENGINEER: Reports: Other (see below) Other Treatments GENETIC ENGINEER: 102 - Related Data Allergies Allergy/AdvReac Type Severity Reaction Status Date / Time dimenhydrinate Allergy Itching Verified 01/24/18 16:29 [From Dramamine] naproxen Allergy Itching Verified 01/24/18 16:29 Penicillins Allergy Itching Verified 01/24/18 16:29 metals Allergy Itching Uncoded 05/29/19 11:18 Home Meds: Home Meds Clopidogrel [Plavix] 75 mg PO DAILY 09/14/16 [History] Docusate Sodium [Dulcolax Stool Softener] 0 mg PO DAILY 09/14/16 [History] Escitalopram [Lexapro] 10 mg PO BEDTIME 09/14/16 [History] Norris Q Plus 100 With Reveratrol 1 tab PO DAILY 09/14/16 [History] Norris-3 Joint Relief With Tumeric 1 tab PO DAILY 09/14/16 [History] Rosuvastatin Calcium 5 mg PO DAILY 09/14/16 [History] amLODIPine [Norvasc] 10 mg PO DAILY 09/14/16 [History] Acetaminophen [Tylenol Arthritis] 650 mg PO DAILY 05/29/19 [History] Cholecalciferol (Vitamin D3) [Vitamin D3] 05/29/19 [History] Mv-Min/Iron/Folic/Calcium/Vitk [Women's Multivitamin Tablet] 05/29/19 [History] Pantoprazole Sodium [Protonix] 40 mg PO DAILY 05/29/19 [History] traZODone HCl [Trazodone HCl] 100 mg PO BID 05/29/19 [History] Past Medical History HEENT History: Reports: Cataract, Sinusitis Cardiovascular History: Reports: High Cholesterol, Hypertension Respiratory History: Reports: None Gastrointestinal History: Reports: Cholelithiasis Genitourinary History: Reports: None 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: Musculoskeletal History: Reports: Arthritis Neurological History: Reports: TIA Psychiatric History: Reports: Depression Endocrine/Metabolic History: Reports: Osteoporosis Hematologic History: Reports: None Immunologic History: Reports: None Oncologic (Cancer) History: Reports: None Dermatologic History: Reports: None - Infectious Disease History Infectious Disease History: Reports: Chicken Pox, Measles, Mumps - Past Surgical History Head Surgeries/Procedures: Reports: None HEENT Surgical History: Reports: Cataract Surgery GI Surgical History: Reports: Appendectomy, Cholecystectomy, Other (See Below) Female Surgical History: Reports: Hysterectomy, Salpingo-Oophorectomy Musculoskeletal Surgical History: Reports: Hip Replacement, Joint Replacement, Knee Replacement, Other (See Below) Social & Family History - Family History Family Medical History: Noncontributory Cardiac: Reports: None Respiratory: Reports: None GI: Reports: None : Reports: None OBGYN: Reports: None Musculoskeletal: Reports: None Neurological: Reports: None Psychiatric: Reports: None Endocrine/Metabolic: Reports: None Hematologic: Reports: None Immunologic: Reports: None Dermatologic: Reports: None Oncologic: Reports: Other (See Below) Other Oncologic Family History: stomach - Tobacco Use Smoking Status *Q: Never Smoker - Caffeine Use Caffeine Use: Reports: None - Recreational Drug Use Recreational Drug Use: No ED ROS GENERAL - Review of Systems Review Of Systems: See Below Constitutional: Reports: No Symptoms HEENT: Reports: Vertigo (since this morning. She states that she has had this problem and that it is no different today.) Respiratory: Reports: No Symptoms Cardiovascular: Reports: No Symptoms Endocrine: Reports: No Symptoms GI/Abdominal: Reports: No Symptoms : Reports: No Symptoms Musculoskeletal: Reports: Muscle Pain (left trap) Skin: Reports: No Symptoms Neurological: Reports: Dizziness, Headache (frontal headache that is mild to moderate.), Gait Disturbance (Vertigo). Denies: Confusion, Paresthesia, Syncope , Tremors, Trouble Speaking, Weakness Psychiatric: Reports: No Symptoms ED EXAM, NEURO - Physical Exam Exam: See Below Exam Limited By: No Limitations General Appearance: Alert, WD/WN, No Apparent Distress, Other (looks younger than her stated age) Eye Exam: Bilateral Eye: EOMI, Normal Fundi, Normal Inspection, PERRL (3.5mm) Ears: Normal External Exam, Normal Canal, Hearing Grossly Normal, Normal TMs Nose: Normal Inspection, Normal Mucosa, No Blood Throat/Mouth: Normal Inspection, Normal Lips, Normal Teeth, Normal Gums, Normal Oropharynx, Normal Voice, No Airway Compromise Head Exam: Atraumatic, Normocephalic Neck: Normal Inspection, Supple, Full Range of Motion, Other (mild tenderness is noted over the left trap muscle group.) Respiratory/Chest: No Respiratory Distress, Lungs Clear, Normal Breath Sounds, No Accessory Muscle Use, Chest Non-Tender Cardiovascular: Normal Peripheral Pulses, Regular Rate, Rhythm, No Edema, No Gallop, No JVD, No Murmur GI/Abdominal: Normal Bowel Sounds, Soft, Non-Tender, No Organomegaly, No Distention, No Abnormal Bruit, No Mass (Female) Exam: Deferred Rectal (Female) Exam: Deferred Neurological: Alert, Normal Mood/Affect, Normal Dorsiflexion, CN II-XII Intact, Normal Plantar Flexion, Normal Reflexes, No Motor/Sensory Deficits, Oriented x 3 DTR: 2+: Bicep (R), 3+: Bicep (L), Patella (R), Patella (L), Achilles (R), Achilles (L) Back Exam: Normal Inspection, Full Range of Motion, NT Extremities: Normal Inspection, Normal Range of Motion, Non-Tender, No Pedal Edema, Normal Capillary Refill. No: Dede's Sign Psychiatric: Normal Affect, Normal Mood Skin Exam: Warm, Dry, Intact, Normal Color, No Rash Course - Vital Signs Text/Narrative:: I talked with Dr. Alex at 1:35PM. I discussed with Dr. Alex all of her diagnostic test and CT of her head. She will be admitted to OBS/TELE with a diagnosis of near syncope. The patient agrees with the admission. Last Recorded V/S: Last Vital Signs Temp 97.0 F 05/29/19 11:43 Pulse 54 L 05/29/19 11:43 Resp 18 05/29/19 11:43 BP 126/54 L 05/29/19 11:43 Pulse Ox 97 05/29/19 11:43 Orthostatic Blood Pressure [ 119/64 Standing] Orthostatic Blood Pressure [ 113/68 Sitting] Orthostatic Blood Pressure [ 129/58 Supine] - Orders/Labs/Meds Orders: Active Orders 24 hr Category Date Time Status EKG 12 Lead [EKG Documentation Completion] [RC] STAT Care 05/29/19 11:24 Active Orthostatic Vital Signs [RC] ASDIRECTED Care 05/29/19 13:07 Active Labs: Laboratory Tests 05/29/19 05/29/19 Range/Units 11:27 11:27 WBC 6.12 (4.0-11.0) K/uL RBC 4.77 (4.30-5.90) M/uL Hgb 13.4 (12.0-16.0) g/dL Hct 42.1 (36.0-46.0) % MCV 88.3 (80.0-98.0) fL MCH 28.1 (27.0-32.0) pg MCHC 31.8 (31.0-37.0) g/dL RDW Std Deviation 50.7 (28.0-62.0) fl RDW Coeff of Yaneth 16 H (11.0-15.0) % Plt Count 293 (150-400) K/uL MPV 9.60 (7.40-12.00) fL Neut % (Auto) 60.7 (48.0-80.0) % Lymph % (Auto) 28.8 (16.0-40.0) % [place] % (Auto) 8.2 (0.0-15.0) % Eos % (Auto) 1.3 (0.0-7.0) % Baso % (Auto) 1.0 (0.0-1.5) % Neut # (Auto) 3.7 (1.4-5.7) K/uL Lymph # (Auto) 1.8 (0.6-2.4) K/uL [place] # (Auto) 0.5 (0.0-0.8) K/uL Eos # (Auto) 0.1 (0.0-0.7) K/uL Baso # (Auto) 0.1 (0.0-0.1) K/uL Nucleated RBC % 0.0 /100WBC Nucleated RBCs # 0 K/uL Sodium 142 (136-145) mmol/L Potassium 3.9 (3.5-5.1) mmol/L Chloride 107 (98-107) mmol/L Carbon Dioxide 29.1 (21.0-32.0) mmol/L BUN 14 (7.0-18.0) mg/dL Creatinine 0.8 (0.6-1.0) mg/dL Est Cr Clr Drug Dosing 56.00 mL/min Estimated GFR (MDRD) > 60.0 ml/min Glucose 86 (74-106) mg/dL Calcium 8.8 (8.5-10.1) mg/dL Magnesium 2.3 (1.8-2.4) mg/dL Total Bilirubin 0.4 (0.2-1.0) mg/dL AST 17 (15-37) IU/L ALT 19 (14-63) IU/L Alkaline Phosphatase 79 (46-116) U/L Troponin I < 0.050 (0.000-0.056) ng/mL Total Protein 7.1 (6.4-8.2) g/dL Albumin 3.4 (3.4-5.0) g/dL Globulin 3.7 (2.6-4.0) g/dL Albumin/Globulin Ratio 0.9 (0.9-1.6) Meds: Medications Discontinued Medications Generic Name Dose Route Start Last Admin Trade Name Freq PRN Reason Stop Dose Admin Meclizine HCl 25 mg 05/29/19 11:30 05/29/19 11:44 Antivert PO 05/29/19 11:31 25 mg ONETIME ONE Administration Departure - Departure Time of Disposition: 13:39 Disposition: Refer to Observation Condition: Fair Clinical Impression: Near syncope, Vertigo, Sinus bradycardia by electrocardiogram - Discharge Information *PRESCRIPTION DRUG MONITORING PROGRAM REVIEWED*: Yes *COPY OF PRESCRIPTION DRUG MONITORING REPORT IN PATIENT GERMAINE: Yes Referrals: Xenia Daniel DO [Primary Care Provider] - Forms: ED Department Discharge Sepsis Event Note - Evaluation Sepsis Screening Result: No Definite Risk - Focused Exam Vital Signs: Vital Signs Temp Pulse Resp BP Pulse Ox 05/29/19 11:43 97.0 F 54 L 18 126/54 L 97 05/29/19 11:26 57 L 118/44 L 98 05/29/19 11:15 97.4 F 61 17 139/64 96 Date Exam was Performed: 05/29/19 Time Exam was Performed: 13:37 - My Orders Last 24 Hours: My Active Orders 05/29/19 11:24 EKG 12 Lead [EKG Documentation Completion] [RC] STAT 05/29/19 13:07 Orthostatic Vital Signs [RC] ASDIRECTED - Assessment/Plan Last 24 Hours: My Active Orders 05/29/19 11:24 EKG 12 Lead [EKG Documentation Completion] [RC] STAT 05/29/19 13:07 Orthostatic Vital Signs [RC] ASDIRECTED
[2019-05-29 12:05] LABS: BLOOD UREA NITROGEN,BUN 14 mg/dL (7.0-18.0); CARBON DIOXIDE,CO2 29.1 mmol/L (21.0-32.0); CHLORIDE,CL 107 mmol/L (98-107); GLUCOSE RANDOM 86 mg/dL (74-106); POTASSIUM,K 3.9 mmol/L (3.5-5.1); SODIUM,NA 142 mmol/L (136-145)
--- NOTE | 2019-05-29 12:08 | CR ---
Chest: Frontal view of the chest was obtained. Comparison: Prior chest x-ray of 01/24/18. Heart size is normal. Tortuous thoracic aorta is seen. Lungs are clear with no acute parenchymal change. Bony structures are grossly intact. Impression: 1. Nothing acute is seen on portable chest x-ray. Diagnostic code #1 This report was dictated in MDT
--- NOTE | 2019-05-29 12:37 | CT ---
Head CT Technique: Multiple axial sections of the brain were obtained. Intravenous contrast was not utilized. Comparison: No prior intracranial imaging is available. Findings: Ventricles along with basal cisterns and sulci over the convexities are within normal limits for the patient's age. No abnormal parenchymal densities are seen. No evidence of intracranial hemorrhage. No midline shift or mass effect is seen. Bone window settings were reviewed which shows no acute calvarial abnormality. Visualized paranasal sinuses show nothing acute. Mastoid sinus is also showed nothing acute. Impression: 1. Nothing acute is appreciated on noncontrast head CT exam. Diagnostic code #1 Study was dictated in MDT
[2019-05-29] MEDS ORDERED: Ondansetron 4 MG/2 ML SDV IVPUSH PRN (14:25)
[2019-05-29] MEDS ORDERED: Sodium Chloride 0.9% 1,000 ML IV STA (14:25)
[2019-05-29] MEDS ORDERED: Acetaminophen 325 MG Tab PO PRN (14:25)
--- NOTE | 2019-05-29 14:25 | PCM.HP.2 ---
H&P History of Present Illness - General Date of Service: 05/29/19 Admit Problem/Dx: Admission Diagnosis/Problem Admission Diagnosis/Problem Near syncope Source of Information: Patient - History of Present Illness Initial Comments - Free Text/Narative: This 78 year old female with pmh of TIA, HTN and GERD presented to the ED with concerns of dizziness that started this morning suddenly. She reports she woke up ok, made breakfast and was getting up after eating and felt tremendously dizzy. She reports that she has had a headache the last couple days with sinus pressure and some L ear and neck pain. She reports the dizziness is worse with movement of her head and sitting up. She denies chest pain, palpitations, or dyspnea. She denies fevers or chills, no cough or respiratory symptoms. No abdominal pain or urinary concerns. She reports having history of vertigo in the past and this feels similar. She denies any neurological findings. In the ED labwork WNL, UA negative. EKG revealed SB with rates in the 50s. She reports feeling just fine, but with any movement of her head she feels dizzy. Orthostatic BP ok, BP did drop 10 pts from supine to standing. She was given Meclizine, dizziness improved some, but she still felt very unsteady and didn't feel like she could walk on her own. She will be admitted for observation for dizziness. - Related Data Allergies/Adverse Reactions: Allergies Allergy/AdvReac Type Severity Reaction Status Date / Time dimenhydrinate Allergy Itching Verified 05/29/19 14:37 [From Dramamine] naproxen Allergy Itching Verified 05/29/19 14:37 Penicillins Allergy Itching Verified 05/29/19 14:37 metals Allergy Itching Uncoded 05/29/19 14:37 Home Medications: Home Meds Clopidogrel [Plavix] 75 mg PO DAILY 09/14/16 [History] Docusate Sodium [Dulcolax Stool Softener] 0 mg PO DAILY 09/14/16 [History] Escitalopram [Lexapro] 10 mg PO BEDTIME 09/14/16 [History] Hope Q Plus 100 With Reveratrol 1 tab PO DAILY 09/14/16 [History] Hope-3 Joint Relief With Tumeric 1 tab PO DAILY 09/14/16 [History] Rosuvastatin Calcium 5 mg PO DAILY 09/14/16 [History] amLODIPine [Norvasc] 10 mg PO DAILY 09/14/16 [History] Acetaminophen [Tylenol Arthritis] 650 mg PO DAILY 05/29/19 [History] Cholecalciferol (Vitamin D3) [Vitamin D3] 05/29/19 [History] Mv-Min/Iron/Folic/Calcium/Vitk [Women's Multivitamin Tablet] 05/29/19 [History] Pantoprazole Sodium [Protonix] 40 mg PO DAILY 05/29/19 [History] traZODone HCl [Trazodone HCl] 100 mg PO BID 05/29/19 [History] Past Medical History HEENT History: Reports: Cataract, Sinusitis Cardiovascular History: Reports: High Cholesterol, Hypertension Respiratory History: Reports: None Gastrointestinal History: Reports: Cholelithiasis Genitourinary History: Reports: None 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: Musculoskeletal History: Reports: Arthritis Neurological History: Reports: TIA Psychiatric History: Reports: Depression Endocrine/Metabolic History: Reports: Osteoporosis Hematologic History: Reports: None Immunologic History: Reports: None Oncologic (Cancer) History: Reports: None Dermatologic History: Reports: None - Infectious Disease History Infectious Disease History: Reports: Chicken Pox, Measles, Mumps - Past Surgical History Head Surgeries/Procedures: Reports: None HEENT Surgical History: Reports: Cataract Surgery GI Surgical History: Reports: Appendectomy, Cholecystectomy, Other (See Below) Female Surgical History: Reports: Hysterectomy, Salpingo-Oophorectomy Musculoskeletal Surgical History: Reports: Hip Replacement, Joint Replacement, Knee Replacement, Other (See Below) Social & Family History - Family History Family Medical History: Noncontributory Cardiac: Reports: None Respiratory: Reports: None GI: Reports: None : Reports: None OBGYN: Reports: None Musculoskeletal: Reports: None Neurological: Reports: None Psychiatric: Reports: None Endocrine/Metabolic: Reports: None Hematologic: Reports: None Immunologic: Reports: None Dermatologic: Reports: None Oncologic: Reports: Other (See Below) Other Oncologic Family History: stomach - Tobacco Use Smoking Status *Q: Former Smoker Used Tobacco, but Quit: Yes Month/Year Tobacco Last Used: 40+ years ago - Caffeine Use Caffeine Use: Reports: None - Alcohol Use Alcohol Use History: No - Recreational Drug Use Recreational Drug Use: No H&P Review of Systems - Review of Systems: Review Of Systems: See Below General: Denies: Fever, Chills, Malaise, Fatigue HEENT: Reports: Ear Pain (L), Headaches, Sinus Congestion, Vertigo. Denies: Sore Throat Pulmonary: Reports: No Symptoms. Denies: Shortness of Breath Cardiovascular: Reports: No Symptoms. Denies: Chest Pain, Palpitations, Dyspnea on Exertion, Edema Gastrointestinal: Reports: No Symptoms. Denies: Abdominal Pain, Black Stool Genitourinary: Reports: No Symptoms. Denies: Dysuria, Frequency, Burning Psychiatric: Reports: No Symptoms Neurological: Reports: Dizziness, Headache Hematologic/Lymphatic: Reports: No Symptoms Immunologic: Reports: No Symptoms Exam - Exam Exam: See Below - Vital Signs Vital Signs: Last Vital Signs Temp 98.5 F 05/29/19 13:37 Pulse 57 L 05/29/19 13:37 Resp 18 05/29/19 13:37 BP 115/75 05/29/19 13:43 Pulse Ox 94 L 05/29/19 13:37 Orthostatic Blood Pressure [ 119/64 Standing] Orthostatic Blood Pressure [ 113/68 Sitting] Orthostatic Blood Pressure [ 129/58 Supine] Weight: 93.894 kg - Exam General: Alert, Oriented, Cooperative HEENT: Conjunctiva Clear, Mucosa Moist & [place], Posterior Pharynx Clear, TMs Clear (increase wax), Other (hearin aids bilaterally) Lungs: Clear to Auscultation, Normal Respiratory Effort Cardiovascular: Regular Rate, Regular Rhythm, Normal S1, Normal S2 Extremities: Normal Inspection, Normal Range of Motion, Non-Tender, No Pedal Edema Neurological: Cranial Nerves Intact Neuro Extensive - Mental Status: Alert, Oriented x3, Other (no nystagmus noted, but recently given meclizine) Neuro Extensive - Motor, Sensory, Reflexes: CN II-XII Intact Psychiatric: Alert, Normal Affect, Normal Mood. No: Anxious - Patient Data Lab Results Last 24 hrs: Laboratory Results - last 24 hr 05/29/19 05/29/19 05/29/19 Range/Units 11:27 11:27 13:50 WBC 6.12 (4.0-11.0) K/uL RBC 4.77 (4.30-5.90) M/uL Hgb 13.4 (12.0-16.0) g/dL Hct 42.1 (36.0-46.0) % MCV 88.3 (80.0-98.0) fL MCH 28.1 (27.0-32.0) pg MCHC 31.8 (31.0-37.0) g/dL RDW Std Deviation 50.7 (28.0-62.0) fl RDW Coeff of Yaneth 16 H (11.0-15.0) % Plt Count 293 (150-400) K/uL MPV 9.60 (7.40-12.00) fL Neut % (Auto) 60.7 (48.0-80.0) % Lymph % (Auto) 28.8 (16.0-40.0) % [place] % (Auto) 8.2 (0.0-15.0) % Eos % (Auto) 1.3 (0.0-7.0) % Baso % (Auto) 1.0 (0.0-1.5) % Neut # (Auto) 3.7 (1.4-5.7) K/uL Lymph # (Auto) 1.8 (0.6-2.4) K/uL [place] # (Auto) 0.5 (0.0-0.8) K/uL Eos # (Auto) 0.1 (0.0-0.7) K/uL Baso # (Auto) 0.1 (0.0-0.1) K/uL Nucleated RBC % 0.0 /100WBC Nucleated RBCs # 0 K/uL Sodium 142 (136-145) mmol/L Potassium 3.9 (3.5-5.1) mmol/L Chloride 107 (98-107) mmol/L Carbon Dioxide 29.1 (21.0-32.0) mmol/L BUN 14 (7.0-18.0) mg/dL Creatinine 0.8 (0.6-1.0) mg/dL Est Cr Clr Drug Dosing 56.00 mL/min Estimated GFR (MDRD) > 60.0 ml/min Glucose 86 (74-106) mg/dL Calcium 8.8 (8.5-10.1) mg/dL Magnesium 2.3 (1.8-2.4) mg/dL Total Bilirubin 0.4 (0.2-1.0) mg/dL AST 17 (15-37) IU/L ALT 19 (14-63) IU/L Alkaline Phosphatase 79 (46-116) U/L Troponin I < 0.050 (0.000-0.056) ng/mL Total Protein 7.1 (6.4-8.2) g/dL Albumin 3.4 (3.4-5.0) g/dL Globulin 3.7 (2.6-4.0) g/dL Albumin/Globulin Ratio 0.9 (0.9-1.6) Urine Color YELLOW Urine Appearance CLEAR Urine pH 6.0 (5.0-8.0) Ur Specific [place] 1.015 (1.001-1.035) Urine Protein NEGATIVE (NEGATIVE) mg/dL Urine Glucose (UA) NEGATIVE (NEGATIVE) mg/dL Urine Ketones NEGATIVE (NEGATIVE) mg/dL Urine Occult Blood NEGATIVE (NEGATIVE) Urine Nitrite NEGATIVE (NEGATIVE) Urine Bilirubin NEGATIVE (NEGATIVE) Urine Urobilinogen 0.2 (<2.0) EU/dL Ur Leukocyte Esterase NEGATIVE (NEGATIVE) Result Diagrams: 05/29/19 11:27 05/29/19 11:27 Sepsis Event Note - Evaluation Sepsis Screening Result: No Definite Risk - Focused Exam Vital Signs: Vital Signs Temp Pulse Resp BP Pulse Ox 05/29/19 13:43 115/75 05/29/19 13:37 98.5 F 57 L 18 118/47 L 94 L 05/29/19 13:14 55 L 18 125/83 95 05/29/19 11:43 97.0 F 54 L 18 126/54 L 97 05/29/19 11:26 57 L 118/44 L 98 05/29/19 11:15 97.4 F 61 17 139/64 96 Date Exam was Performed: 05/29/19 Time Exam was Performed: 15:08 - Problem List (1) Vertigo SNOMED Code(s): 689310057 ICD Code: R42 - DIZZINESS AND GIDDINESS Status: Acute Current Visit: Yes (2) GERD (gastroesophageal reflux disease) SNOMED Code(s): 176864131 ICD Code: K21.9 - GASTRO-ESOPHAGEAL REFLUX DISEASE WITHOUT ESOPHAGITIS Status: Acute Current Visit: Yes (3) HTN (hypertension) SNOMED Code(s): 80153569 ICD Code: I10 - ESSENTIAL (PRIMARY) HYPERTENSION Status: Chronic Current Visit: No Qualifiers: Hypertension type: essential hypertension Qualified Code(s): I10 - Essential (primary) hypertension (4) Hx of transient ischemic attack (TIA) SNOMED Code(s): 362405256 ICD Code: Z86.73 - PRSNL HX OF TIA (TIA), AND CEREB INFRC W/O RESID DEFICITS Status: Chronic Current Visit: No (5) Hyperlipidemia SNOMED Code(s): 97975963 ICD Code: E78.5 - HYPERLIPIDEMIA, UNSPECIFIED Status: Chronic Current Visit: No Qualifiers: Hyperlipidemia type: unspecified Qualified Code(s): E78.5 - Hyperlipidemia , unspecified Problem List Initiated/Reviewed/Updated: Yes Orders Last 24hrs: Active Orders 24 hr Category Date Time Status Admission Status [Patient Status] [ADT] Stat ADT 05/29/19 13:40 Active Telemetry Monitoring [Cardiac Monitoring] [RC] . Care 05/29/19 13:57 Active DIRECTED Consult to Physical Therapy [PT Evaluation and Cons 05/29/19 13:57 Active Treatment] [CONS] Stat Assessment/Plan Comment:: This 78 year old female admitted with vertigo 1. Vertigo - Reports improvement of dizziness with meclizine but dizziness continues when she moves her head or gets up to ambulate - Sinus congestion, will start Flonase - Carotid doppler - No focal neurologic symptoms. - Consult PT to evaluate dizziness - Monitor on Telemetry, HR in 50s - Orthostatics normal, did drop by 10 pts. Will give 1 L NS and monitor. - Hold Amlodipine for now 2. HTN: - BP mid 110s SBP - Hold Amlodpine for now and monitor. 3. GERD: - Continue Protonix VTE prophylaxis: SCDs Code Status: Full Dispo: 1 day - Mortality Measure Prognosis:: Good
[2019-05-29] MEDS: Fluticasone Propionate Nasal Spray 16 GM Bottle NASBOTH SCH (17:00)
--- NOTE | 2019-05-29 19:12 | US ---
Carotid ultrasound: Duplex and color flow imaging was obtained of the carotid arteries. Minimal plaque noted within both distal common carotid arteries and carotid bulb. Right side: CCA has a peak systolic velocity of 0.66 m/sec. ICA has a peak systolic velocity of 0.70 m/sec and peak end-diastolic velocity of 0.23 m/sec. ECA has a peak systolic velocity of 0.64 m/sec. ICA/CCA ratio is 1.1. Vertebral artery has a peak systolic velocity of 0.62. Left side: CCA has a peak systolic velocity of 0.84 m/sec. ICA has a peak systolic velocity of 0.70 m/sec and peak end-diastolic velocity of 0.23 m/sec. ECA has a peak systolic velocity of 0.55 m/sec. ICA/CCA ratio is 0.93. Vertebral artery has a peak systolic velocity of 0.53. Impression: 1. Minimal plaque. 2. Velocity measurements correspond to plaque in the range of 1-49% within both internal carotid arteries. Diagnostic code #2 Study was dictated in MDT
[2019-05-29] MEDS: traZODone 50 MG Tab PO SCH (20:47)
[2019-05-29] MEDS ORDERED: Escitalopram 10 MG Tab PO SCH (21:00)
[2019-05-30 04:24] VITALS: BP 91/46; PULSE 88
[2019-05-30] MEDS ORDERED: Pantoprazole 40 MG Tab.CR PO SCH (07:00)
[2019-05-30] MEDS: traZODone 50 MG Tab PO SCH (08:40)
[2019-05-30] MEDS: Fluticasone Propionate Nasal Spray 16 GM Bottle NASBOTH SCH (08:43)
[2019-05-30] MEDS ORDERED: Clopidogrel 75 MG Tab PO SCH (09:00)
[2019-05-30] MEDS ORDERED: Docusate Sodium 100 MG Cap PO SCH (09:00)
[2019-05-30] MEDS ORDERED: Rosuvastatin 10 MG Tab PO SCH (09:00)
--- NOTE | 2019-05-30 10:48 | PCM.DCSUM1 ---
Discharge Summary - Hospital Course Brief History: This 78 year old female with pmh of TIA, HTN and GERD presented to the ED with concerns of dizziness that started this morning suddenly. She reports she woke up ok, made breakfast and was getting up after eating and felt tremendously dizzy. She reports that she has had a headache the last couple days with sinus pressure and some L ear and neck pain. She reports the dizziness is worse with movement of her head and sitting up. She denies chest pain, palpitations, or dyspnea. She denies fevers or chills, no cough or respiratory symptoms. No abdominal pain or urinary concerns. She reports having history of vertigo in the past and this feels similar. She denies any neurological findings. In the ED labwork WNL, UA negative. EKG revealed SB with rates in the 50s. She reports feeling just fine, but with any movement of her head she feels dizzy. Orthostatic BP ok, BP did drop 10 pts from supine to standing. She was given Meclizine, dizziness improved some, but she still felt very unsteady and didn't feel like she could walk on her own. She will be admitted for observation for dizziness. Diagnosis: Stroke: No - Discharge Data Discharge Date: 05/30/19 Discharge Disposition: Home, Self-Care 01 Condition: Stable - Referral to Home Health Primary Care Physician: Xenia Daniel, DO - Discharge Diagnosis/Problem(s) (1) Vertigo SNOMED Code(s): 624806123 ICD Code: R42 - DIZZINESS AND GIDDINESS Status: Acute (2) GERD (gastroesophageal reflux disease) SNOMED Code(s): 080870074 ICD Code: K21.9 - GASTRO-ESOPHAGEAL REFLUX DISEASE WITHOUT ESOPHAGITIS Status: Acute (3) HTN (hypertension) SNOMED Code(s): 10776026 ICD Code: I10 - ESSENTIAL (PRIMARY) HYPERTENSION Status: Chronic Qualifiers: Hypertension type: essential hypertension Qualified Code(s): I10 - Essential (primary) hypertension (4) Hx of transient ischemic attack (TIA) SNOMED Code(s): 482062826 ICD Code: Z86.73 - PRSNL HX OF TIA (TIA), AND CEREB INFRC W/O RESID DEFICITS Status: Chronic (5) Hyperlipidemia SNOMED Code(s): 77175847 ICD Code: E78.5 - HYPERLIPIDEMIA, UNSPECIFIED Status: Chronic Qualifiers: Hyperlipidemia type: unspecified Qualified Code(s): E78.5 - Hyperlipidemia , unspecified - Patient Summary/Data Consults: Consultations 05/29/19 13:57 Consult to Physical Therapy [PT Evaluation and Treatment] [CONS] Stat - Patient Instructions Diet: Heart Healthy Diet Activity: As Tolerated Showering/Bathing: May Shower Notify Provider of: Fever, Increased Pain, Swelling and Redness, Drainage, Nausea and/or Vomiting Other/Special Instructions: Take blood pressure and monitor daily. If blood pressure is 120 on the top do not take blood pressure medications. Keep log of blood pressures to bring to clinic appointment. Stop Amlodipine. Start new medication, Lisinopril. Monitor for dry cough - Discharge Plan *PRESCRIPTION DRUG MONITORING PROGRAM REVIEWED*: Yes *COPY OF PRESCRIPTION DRUG MONITORING REPORT IN PATIENT GERMAINE: Yes Prescriptions/Med Rec: lisinopriL [Lisinopril] 5 mg PO DAILY #30 tablet Home Medications: Home Meds Clopidogrel [Plavix] 75 mg PO DAILY 09/14/16 [History] Docusate Sodium [Dulcolax Stool Softener] 0 mg PO DAILY 09/14/16 [History] Escitalopram [Lexapro] 10 mg PO BEDTIME 09/14/16 [History] [place] Q Plus 100 With Reveratrol 1 tab PO DAILY 09/14/16 [History] [place]-3 Joint Relief With Tumeric 1 tab PO DAILY 09/14/16 [History] Rosuvastatin Calcium 5 mg PO DAILY 09/14/16 [History] Acetaminophen [Tylenol Arthritis] 650 mg PO BEDTIME 05/29/19 [History] Cholecalciferol (Vitamin D3) [Vitamin D3] 05/29/19 [History] Mv-Min/Iron/Folic/Calcium/Vitk [Women's Multivitamin Tablet] 05/29/19 [History] Pantoprazole Sodium [Protonix] 40 mg PO DAILY 05/29/19 [History] traZODone HCl [Trazodone HCl] 200 mg PO BEDTIME 05/29/19 [History] Fluticasone Propionate [Flonase] 1 spray NASBOTH DAILY bottle 05/30/19 [Rx] lisinopriL [Lisinopril] 5 mg PO DAILY #30 tablet 05/30/19 [Rx] Oxygen Therapy Mode: Room Air Patient Handouts: Lisinopril tablets, Dizziness, [id number] Referrals: Xenia Daniel DO [Primary Care Provider] - () Ramakrishna Chaney MD [Ordering Only Provider] - 06/06/19 12:45 pm (Arrive 15 minutes early with a photo ID and insurance card. This was not able to made with Fredy, due to her schedule. ) - Discharge Summary/Plan Comment DC Time >30 min.: No Discharge Summary/Plan Comment: Admitting Diagnoses: Dizziness Discharge Diagnoses: Orthostatic hypotension- resolved Bradycardia-resolved Dizziness resolved Other PMH: TIA GERD HTN HLD Yeni was admitted and monitored on telemetry secondary to dizziness. She was noted to have some hypotension and bradycardia on arrival, this resolved spontaneously as well as dizziness. PT evaluated patient and found no concerns. Amlodipine held. Today BP remains stable 120 SBP and no return of dizziness. She has been ambulating well. We will stop Amlodipine as this could be lowering HR as well as BP too much. Will transition to Lisinopril 5 mg for now. Counseled Yeni on how to monitor BP at home and when to hold BP medications. She is to follow up with PCP in 1 -2 weeks and bring BP log with her. She verbalized understanding. Notified to monitor for cough with Lisinopril. She is to return to ED or clinic if concerns should arise. - Patient Data Vitals - Most Recent: Last Vital Signs Temp 98.1 F 05/30/19 04:22 Pulse 88 05/30/19 04:22 Resp 16 05/30/19 04:22 BP 91/46 L 05/30/19 04:22 Pulse Ox 92 L 05/30/19 04:22 Orthostatic Blood Pressure [ 124/56 Standing] Orthostatic Blood Pressure [ 107/66 Sitting] Orthostatic Blood Pressure [ 117/62 Supine] Weight - Most Recent: 93.894 kg I&O - Last 24 hours: Intake & Output 05/29/19 05/30/19 05/30/19 22:59 06:59 14:59 Intake Total 645 1350 Output Total 800 700 Balance -155 650 Lab Results - Last 24 hrs: Laboratory Results - last 24 hr 05/29/19 05/29/19 05/29/19 Range/Units 11:27 11:27 13:50 WBC 6.12 (4.0-11.0) K/uL RBC 4.77 (4.30-5.90) M/uL Hgb 13.4 (12.0-16.0) g/dL Hct 42.1 (36.0-46.0) % MCV 88.3 (80.0-98.0) fL MCH 28.1 (27.0-32.0) pg MCHC 31.8 (31.0-37.0) g/dL RDW Std Deviation 50.7 (28.0-62.0) fl RDW Coeff of Yaneth 16 H (11.0-15.0) % Plt Count 293 (150-400) K/uL MPV 9.60 (7.40-12.00) fL Neut % (Auto) 60.7 (48.0-80.0) % Lymph % (Auto) 28.8 (16.0-40.0) % [place] % (Auto) 8.2 (0.0-15.0) % Eos % (Auto) 1.3 (0.0-7.0) % Baso % (Auto) 1.0 (0.0-1.5) % Neut # (Auto) 3.7 (1.4-5.7) K/uL Lymph # (Auto) 1.8 (0.6-2.4) K/uL [place] # (Auto) 0.5 (0.0-0.8) K/uL Eos # (Auto) 0.1 (0.0-0.7) K/uL Baso # (Auto) 0.1 (0.0-0.1) K/uL Nucleated RBC % 0.0 /100WBC Nucleated RBCs # 0 K/uL Sodium 142 (136-145) mmol/L Potassium 3.9 (3.5-5.1) mmol/L Chloride 107 (98-107) mmol/L Carbon Dioxide 29.1 (21.0-32.0) mmol/L BUN 14 (7.0-18.0) mg/dL Creatinine 0.8 (0.6-1.0) mg/dL Est Cr Clr Drug Dosing 56.00 mL/min Estimated GFR (MDRD) > 60.0 ml/min Glucose 86 (74-106) mg/dL Calcium 8.8 (8.5-10.1) mg/dL Magnesium 2.3 (1.8-2.4) mg/dL Total Bilirubin 0.4 (0.2-1.0) mg/dL AST 17 (15-37) IU/L ALT 19 (14-63) IU/L Alkaline Phosphatase 79 (46-116) U/L Troponin I < 0.050 (0.000-0.056) ng/mL Total Protein 7.1 (6.4-8.2) g/dL Albumin 3.4 (3.4-5.0) g/dL Globulin 3.7 (2.6-4.0) g/dL Albumin/Globulin Ratio 0.9 (0.9-1.6) Urine Color YELLOW Urine Appearance CLEAR Urine pH 6.0 (5.0-8.0) Ur Specific [place] 1.015 (1.001-1.035) Urine Protein NEGATIVE (NEGATIVE) mg/dL Urine Glucose (UA) NEGATIVE (NEGATIVE) mg/dL Urine Ketones NEGATIVE (NEGATIVE) mg/dL Urine Occult Blood NEGATIVE (NEGATIVE) Urine Nitrite NEGATIVE (NEGATIVE) Urine Bilirubin NEGATIVE (NEGATIVE) Urine Urobilinogen 0.2 (<2.0) EU/dL Ur Leukocyte Esterase NEGATIVE (NEGATIVE) Med Orders - Current: Current Medications Acetaminophen (Tylenol) 650 mg PO Q4H PRN PRN Reason: Pain (Mild 1-3)/fever Clopidogrel Bisulfate (Plavix) 75 mg PO DAILY [facility] Last Admin: 05/30/19 08:41 Dose: 75 mg Docusate Sodium (Colace) 100 mg PO DAILY [facility] Last Admin: 05/30/19 08:40 Dose: 100 mg Escitalopram Oxalate (Lexapro) 10 mg PO BEDTIME [facility] Last Admin: 05/29/19 20:48 Dose: 10 mg Fluticasone Propionate (Flonase) 0 gm NASBOTH DAILY [facility] Last Admin: 05/30/19 08:43 Dose: 1 spray Ondansetron HCl (Zofran) 4 mg IVPUSH Q4H PRN PRN Reason: Nausea Pantoprazole Sodium (Protonix) 40 mg PO DAILY@0700 [facility] Last Admin: 05/30/19 07:20 Dose: 40 mg Rosuvastatin Calcium (Crestor) 5 mg PO DAILY [facility] Last Admin: 05/30/19 08:40 Dose: 5 mg Trazodone HCl (Trazodone) 100 mg PO BID [facility] Last Admin: 05/30/19 08:40 Dose: Not Given Discontinued Medications Sodium Chloride (Normal Saline) 1,000 mls @ 125 mls/hr IV NOW STA Stop: 05/29/19 22:24 Last Admin: 05/29/19 14:40 Dose: 125 mls/hr Meclizine HCl (Antivert) 25 mg PO ONETIME ONE Stop: 05/29/19 11:31 Last Admin: 05/29/19 11:44 Dose: 25 mg
== END 2019-05-30 12:01 | disposition home or self-care (01) ==
LOC: MW.ED 11:13 → MW.MS 13:51
PROVIDERS: ADMIT Student in an Organized Health Care Education/Training Program; ATTEND Student in an Organized Health Care Education/Training Program
DX: I95.1 Orthostatic hypotension (principal); R00.1 Bradycardia, unspecified; K21.9 Gastro-esophageal reflux disease without esophagitis; I10 Essential (primary) hypertension; E78.00 Pure hypercholesterolemia, unspecified; F32.9 Major depressive disorder, single episode, unspecified; E78.5 Hyperlipidemia, unspecified; Z79.899 Other long term (current) drug therapy; Z88.0 Allergy status to penicillin; Z88.8 Allergy status to other drugs, medicaments and biological substances; Z87.891 Personal history of nicotine dependence; Z86.73 Personal history of transient ischemic attack (TIA), and cerebral infarction without residual deficits
CPT/HCPCS: 36415; 70450; 70450-26; 71045; 71045-26; 80053; 81003; 83735; 84484; 85025; 93005; 93880; 93880-26; 96360; 96361; 97161-GP; 99285-25; A9270-GY; G0378; J7030

== ENCOUNTER 2020-09-25 21:55 | Emergency (ER) | payer MEDICARE, OTHER ==
--- NOTE | 2020-09-25 22:08 | PCM.EKG ---
#1 Interpretation EKG Date: 09/25/20 Time: 21:57 Rhythm: NSR Rate (Beats/Min): 82 [place]: LAD-Left [place] Deviation P-Wave: Present QRS: Normal ST-T: Normal QT: Normal Comparison: No Change (05/28/20) EKG Interpretation Comments: Sinus Rhyth
[2020-09-25] MEDS ORDERED: Dextrose 5%-Lactated Ringers 1,000 ML IV SCH (22:45)
[2020-09-25 23:15] LABS: BLOOD UREA NITROGEN,BUN 11 mg/dL (7.0-18.0); CARBON DIOXIDE,CO2 29.1 mmol/L (21.0-32.0); CHLORIDE,CL 104 mmol/L (98-107); GLUCOSE RANDOM 203 mg/dL (74-106); LIPASE 93 U/L (73-393); POTASSIUM,K 2.8 mmol/L (3.5-5.1); SODIUM,NA 141 mmol/L (136-145)
--- NOTE | 2020-09-25 23:17 | CR ---
HISTORY: Hypoxia. COMPARISON: 05/29/2019 FINDINGS: A portable erect AP view of the chest was obtained at 22 38 hours. The lungs remain clear. No focal or diffuse infiltrates are present. The heart remains normal in size. The mediastinum is normal in appearance. The osseous structures are normal in appearance for the patient`s age. IMPRESSION: Normal portable chest single view. Dictated by Elian Miles MD @ 09/25/2020 11:17:[address] Elian Miles @ Sep 25 2020 11:17PM
[2020-09-25] MEDS ORDERED: Potassium Chloride Riders 40 MEQ in Premix Bag 1 BAG IV ONE (23:27)
[2020-09-25] MEDS ORDERED: Potassium Chloride 10% 20 MEQ/15 ML Soln 30 ML UD Cup PO ONE (23:29)
[2020-09-26] MEDS ORDERED: Pantoprazole 80 MG in Sodium Chloride 0.9% 20 ML IVPUSH ONE (00:05)
[2020-09-26] MEDS ORDERED: Famotidine 20 MG Tab PO ONE (00:06)
[2020-09-26] MEDS ORDERED: Potassium Chloride 10% 20 MEQ/15 ML Soln 30 ML UD Cup PO ONE (01:06)
[2020-09-26] MEDS ORDERED: Potassium Chloride 20 MEQ Tab.ER PO ONE (01:09)
--- NOTE | 2020-09-26 01:09 | EDM.PDOC ---
ED HPI GENERAL MEDICAL PROBLEM - General Chief Complaint: Abdominal Pain Stated Complaint: NAUSEA, VOMITTING Time Seen by Provider: 09/25/20 22:00 - History of Present Illness INITIAL COMMENTS - FREE TEXT/NARRATIVE: CHIEF COMPLAINT(S): Nausea, vomiting, diarrhea HISTORY OF PRESENT ILLNESS: This is a 80-year-old woman with a past medical history of hypertension, hyperlipidemia and prior history of TIA and reflux dis ease who presents to the emergency department with a chief complaint of nausea, vomiting, and diarrhea. The patient states that for approximately 4 hours now she has been experiencing nausea, vomiting and diarrhea. She states that she has had approximately greater than 10 episodes of vomiting which is nonbloody and nonbilious. In addition she has had a similar amount of diarrhea which was nonbloody and describes it as watery. She states that she does feel weak. She denies any abdominal pain, chest pain, shortness of breath, sensation of feeling like she is in a pass out. She states that this has happened before. This is reiterated by the patient's family who is at bedside. Apparently this has been a chronic issue but it seems to be worsening tonight. She denies any history of C. difficile colitis, recent antibiotic use, recent travel emergent surgery, prior history of DVT or PE. She states that she has been able to tolerate p.o. but seems to be throwing up. She denies any melena, hematochezia, hematemesis or bilious emesis. He does not know any aggravating factors. She states that nothing seems to make it stop. There are no known sick contacts. REVIEW OF SYSTEMS: Constitutional: Denies fever, chills. Eyes: Denies eye pain Ears, Nose, Mouth, & Throat: Denies earache Cardiovascular: Denies chest pain Respiratory: Denies shortness of breath Gastrointestinal: Positive for nausea, vomiting, diarrhea. Denies abdominal pain hematochezia, hematemesis, bilious emesis, melena genitourinary: Denies hematuria Skin:Denies a rash MSK: Denies joint pain Neurological: Denies blurred vision Psychiatric: Denies depression PAST MEDICAL HISTORY: As per history of present illness and as reviewed below otherwise noncontributory. SURGICAL HISTORY: As per history of present illness and as reviewed below otherwise noncontributory. SOCIAL HISTORY: As per history of present illness and as reviewed below otherwise noncontributory. FAMILY HISTORY: As per history of present illness and as reviewed below otherwise noncontributory. EXAMINATION OF ORGAN SYSTEMS/BODY AREAS: Constitutional: Blood pressure was 110/88, heart rate 76, respiratory rate 18 with an oxygen saturation of 86% on room air. Temperature 36.5 General: Overall well-appearing woman who is in no acute distress Psychiatric: Appropriate mood and affect. Eyes: No scleral icterus or conjunctival erythema ENMT: Dry mucous membranes. No pharyngeal erythema. Cardiovascular: Regular, rate, and rhythm. No gallops, murmurs, or rubs. Bilateral upper extremity pulses symmetric and intact. No peripheral edema. No JVD. Respiratory: Lungs clear to auscultation bilaterally. No wheezes, rales, or rhonchi. Gastrointestinal: Soft, non-tender, non-distended. Normoactive bowel sounds Genitourinary: No suprapubic tenderness Musculoskeletal: Normal range of motion. Skin: No lesions or abrasions. Neurological: Alert, GCS 15 MEDICAL DECISION MAKING AND COURSE IN THE ED WITH INTERPRETATION/REVIEW OF DIAGNOSTIC STUDIES: This is a 80-year-old woman with a past medical history of hypertension, hyperlipidemia and TIA who comes to the emergency department with acute onset nausea, vomiting and diarrhea who on pulse oximetry with good waveform is a 86% on room air. The patient currently denies any recent travel, recent surgery, cough, runny nose, or fever. At this time differential does include ACS, pneumonia, gastroenteritis. Will obtain CBC, CMP, troponin, EKG and urinalysis. EKG was obtained which did not reveal any acute signs of ischemia. At this time we will treat the patient symptomatically and wait laboratory analysis. We will provide the patient with 1 L of D5 LR, Pepcid. Laboratory: CBC reveals a leukocytosis of 16.37 with neutrophilic predominance without any left shift. Hemoglobin is mildly decreased at 11.9 otherwise unremarkable. CMP reveals hypokalemia of 2.8, hyperglycemia 203 and hypocalcemia at 8.2 and hypoalbuminemia at 3.2. Urinalysis was a clean catch and was negative for leukocyte esterase, negative for nitrites, and negative for blood. Interpretation: Negative. The radiological images were viewed by myself along with reading the report from the radiologist. Chest x-ray does not reveal any acute cardiopulmonary process. After labs I did provide the patient with potassium supplementation by mouth. I did discuss with her at this time I would like to keep her in the emergency department to evaluate for p.o. toleration repeat potassium given that it is low. She was amenable to this plan. The patient was able to tolerate p.o. without any difficulty. On repeat potassium was 3.1. At this time I do believe the patient's low potassium is likely secondary to her vomiting and diarrhea. I encouraged the patient to continue with p.o. hydration and to use Zofran as needed for nausea. I did discuss with her that if her symptoms worsen or she is unable to tolerate any fluids or food she should return to the emergency department. The patient was amenable to discharge at this time and had no further questions. DISPOSITION: The patient was discharged home in stable condition. The patient will follow up with primary care physician in 3 to 5 days CONDITION: Fair PROCEDURES: None FINAL IMPRESSION(S)/DIAGNOSES: 1. Acute nausea 2. Acute vomiting 3. Acute diarrhea Javier Paiz M.D. - Related Data Allergies Allergy/AdvReac Type Severity Reaction Status Date / Time dimenhydrinate Allergy Itching Verified 09/25/20 22:24 [From Dramamine] naproxen Allergy Itching Verified 09/25/20 22:24 Penicillins Allergy Itching Verified 09/25/20 22:24 metals Allergy Itching Uncoded 09/25/20 22:24 Home Meds: Home Meds Clopidogrel [Plavix] 75 mg PO DAILY 09/14/16 [History] Docusate Sodium [Dulcoease] 0 mg PO DAILY 09/14/16 [History] Escitalopram [Lexapro] 10 mg PO BEDTIME 09/14/16 [History] Corona Q Plus 100 With Reveratrol 1 tab PO DAILY 09/14/16 [History] Corona-3 Joint Relief With Tumeric 1 tab PO DAILY 09/14/16 [History] Rosuvastatin Calcium 5 mg PO DAILY 09/14/16 [History] Acetaminophen [Tylenol Arthritis] 650 mg PO BEDTIME 05/29/19 [History] Cholecalciferol (Vitamin D3) [Vitamin D3] 05/29/19 [History] Mv-Min/Iron/Folic/Calcium/Vitk [Women's Multivitamin Tablet] 05/29/19 [History] Pantoprazole Sodium [Protonix] 40 mg PO DAILY 05/29/19 [History] traZODone HCl [Trazodone HCl] 200 mg PO BEDTIME 05/29/19 [History] Famotidine 40 mg PO BEDTIME #14 tablet 09/26/20 [Rx] Ondansetron [Zofran ODT] 4 mg PO Q6H PRN #8 tab.dis 09/26/20 [Rx] Ondansetron [Zofran ODT] 4 mg PO Q6H PRN #8 tab.dis 09/28/20 [Rx] Past Medical History HEENT History: Reports: Cataract, Sinusitis Cardiovascular History: Reports: High Cholesterol, Hypertension Respiratory History: Reports: None Gastrointestinal History: Reports: Cholelithiasis Genitourinary History: Reports: None LAY[employer] T[employer]ER History: Reports: Musculoskeletal History: Reports: Arthritis Neurological History: Reports: TIA Psychiatric History: Reports: Depression Endocrine/Metabolic History: Reports: Osteoporosis Hematologic History: Reports: None Immunologic History: Reports: None Oncologic (Cancer) History: Reports: None Dermatologic History: Reports: None - Infectious Disease History Infectious Disease History: Reports: Chicken Pox, Measles, Mumps - Past Surgical History Head Surgeries/Procedures: Reports: None HEENT Surgical History: Reports: Cataract Surgery Cardiovascular Surgical History: Reports: None Respiratory Surgical History: Reports: None GI Surgical History: Reports: Appendectomy, Cholecystectomy, Other (See Below) Other GI Surgeries/Procedures: gallstones Female Surgical History: Reports: Hysterectomy, Salpingo-Oophorectomy Musculoskeletal Surgical History: Reports: Hip Replacement, Joint Replacement, Knee Replacement, Other (See Below) Other Musculoskeletal Surgeries/Procedures:: bilateral hips, left rotator cuff Oncologic Surgical History: Reports: None Dermatological Surgical History: Reports: None Social & Family History - Family History Family Medical History: No Pertinent Family History Cardiac: Reports: None Respiratory: Reports: None GI: Reports: None : Reports: None OBGYN: Reports: None Musculoskeletal: Reports: None Neurological: Reports: None Psychiatric: Reports: None Endocrine/Metabolic: Reports: None Hematologic: Reports: None Immunologic: Reports: None Dermatologic: Reports: None Oncologic: Reports: Other (See Below) Other Oncologic Family History: stomach - Caffeine Use Caffeine Use: Reports: None ED ROS GENERAL - Review of Systems Review Of Systems: See Below ED EXAM, GENERAL - Physical Exam Exam: See Below Course - Vital Signs Last Recorded V/S: Last Vital Signs Temp 36.5 C 09/25/20 22:14 Pulse 80 09/26/20 01:00 Resp 20 09/26/20 01:00 BP 114/68 09/26/20 01:00 Pulse Ox 95 09/26/20 01:00 - Orders/Labs/Meds Labs: Laboratory Tests 09/25/20 09/25/20 09/25/20 Range/Units 22:49 22:49 23:31 WBC 16.37 H (4.0-11.0) K/uL RBC 4.40 (4.30-5.90) M/uL Hgb 11.9 L (12.0-16.0) g/dL Hct 36.9 (36.0-46.0) % MCV 83.9 (80.0-98.0) fL MCH 27.0 (27.0-32.0) pg MCHC 32.2 (31.0-37.0) g/dL RDW Std Deviation 50.1 (28.0-62.0) fl RDW Coeff of Yaneth 16 H (11.0-15.0) % Plt Count 281 (150-400) K/uL MPV 9.70 (7.40-12.00) fL Neut % (Auto) 87.0 H (48.0-80.0) % Lymph % (Auto) 6.2 L (16.0-40.0) % [place] % (Auto) 6.2 (0.0-15.0) % Eos % (Auto) 0.4 (0.0-7.0) % Baso % (Auto) 0.2 (0.0-1.5) % Neut # (Auto) 14.3 H (1.4-5.7) K/uL Lymph # (Auto) 1.0 (0.6-2.4) K/uL [place] # (Auto) 1.0 H (0.0-0.8) K/uL Eos # (Auto) 0.1 (0.0-0.7) K/uL Baso # (Auto) 0.0 (0.0-0.1) K/uL Nucleated RBC % 0.0 /100WBC Nucleated RBCs # 0 K/uL Sodium 141 (136-145) mmol/L Potassium 2.8 L (3.5-5.1) mmol/L Chloride 104 (98-107) mmol/L Carbon Dioxide 29.1 (21.0-32.0) mmol/L BUN 11 (7.0-18.0) mg/dL Creatinine 0.9 (0.6-1.0) mg/dL Est Cr Clr Drug Dosing 52.81 mL/min Estimated GFR (MDRD) > 60.0 ml/min Glucose 203 H (74-106) mg/dL Calcium 8.2 L (8.5-10.1) mg/dL Magnesium 2.1 (1.8-2.4) mg/dL Total Bilirubin 0.4 (0.2-1.0) mg/dL AST 18 (15-37) IU/L ALT 21 (14-63) IU/L Alkaline Phosphatase 74 (46-116) U/L Troponin I < 0.050 (0.000-0.056) ng/mL Total Protein 6.5 (6.4-8.2) g/dL Albumin 3.2 L (3.4-5.0) g/dL Globulin 3.3 (2.6-4.0) g/dL Albumin/Globulin Ratio 1.0 (0.9-1.6) Lipase 93 (73-393) U/L Urine Color YELLOW Urine Appearance CLEAR Urine pH 6.5 (5.0-8.0) Ur Specific Balsam 1.015 (1.001-1.035) Urine Protein NEGATIVE (NEGATIVE) mg/dL Urine Glucose (UA) >=1000 (NEGATIVE) mg/dL Urine Ketones NEGATIVE (NEGATIVE) mg/dL Urine Occult Blood NEGATIVE (NEGATIVE) Urine Nitrite NEGATIVE (NEGATIVE) Urine Bilirubin NEGATIVE (NEGATIVE) Urine Urobilinogen 0.2 (<2.0) EU/dL Ur Leukocyte Esterase NEGATIVE (NEGATIVE) 09/26/20 Range/Units 00:30 WBC (4.0-11.0) K/uL RBC (4.30-5.90) M/uL Hgb (12.0-16.0) g/dL Hct (36.0-46.0) % MCV (80.0-98.0) fL MCH (27.0-32.0) pg MCHC (31.0-37.0) g/dL RDW Std Deviation (28.0-62.0) fl RDW Coeff of Yaneth (11.0-15.0) % Plt Count (150-400) K/uL MPV (7.40-12.00) fL Neut % (Auto) (48.0-80.0) % Lymph % (Auto) (16.0-40.0) % [place] % (Auto) (0.0-15.0) % Eos % (Auto) (0.0-7.0) % Baso % (Auto) (0.0-1.5) % Neut # (Auto) (1.4-5.7) K/uL Lymph # (Auto) (0.6-2.4) K/uL [place] # (Auto) (0.0-0.8) K/uL Eos # (Auto) (0.0-0.7) K/uL Baso # (Auto) (0.0-0.1) K/uL Nucleated RBC % /100WBC Nucleated RBCs # K/uL Sodium (136-145) mmol/L Potassium 3.1 L (3.5-5.1) mmol/L Chloride (98-107) mmol/L Carbon Dioxide (21.0-32.0) mmol/L BUN (7.0-18.0) mg/dL Creatinine (0.6-1.0) mg/dL Est Cr Clr Drug Dosing mL/min Estimated GFR (MDRD) ml/min Glucose (74-106) mg/dL Calcium (8.5-10.1) mg/dL Magnesium (1.8-2.4) mg/dL Total Bilirubin (0.2-1.0) mg/dL AST (15-37) IU/L ALT (14-63) IU/L Alkaline Phosphatase (46-116) U/L Troponin I (0.000-0.056) ng/mL Total Protein (6.4-8.2) g/dL Albumin (3.4-5.0) g/dL Globulin (2.6-4.0) g/dL Albumin/Globulin Ratio (0.9-1.6) Lipase (73-393) U/L Urine Color Urine Appearance Urine pH (5.0-8.0) Ur Specific Balsam (1.001-1.035) Urine Protein (NEGATIVE) mg/dL Urine Glucose (UA) (NEGATIVE) mg/dL Urine Ketones (NEGATIVE) mg/dL Urine Occult Blood (NEGATIVE) Urine Nitrite (NEGATIVE) Urine Bilirubin (NEGATIVE) Urine Urobilinogen (<2.0) EU/dL Ur Leukocyte Esterase (NEGATIVE) Meds: Medications Discontinued Medications Generic Name Dose Route Start Last Admin Trade Name Freq PRN Reason Stop Dose Admin Famotidine 20 mg 09/26/20 00:06 09/26/20 00:26 Famotidine 20 Mg Tab PO 09/26/20 00:07 20 mg ONETIME ONE Administration Dextrose/Lactated Ringer's 1,000 mls @ 999 mls/hr 09/25/20 22:45 09/25/20 22:42 Dextrose 5%-Lactated Ringers IV 999 mls/hr ASDIRECTED VIJAY Administration Potassium Chloride 40 meq/ 100 mls @ 25 mls/hr 09/25/20 23:27 09/25/20 23:30 Premix IV 09/26/20 03:26 Not Given ONETIME ONE Pantoprazole Sodium 80 mg/ 20 mls @ 420 mls/hr 09/26/20 00:05 Sodium Chloride IVPUSH 09/26/20 00:07 ONETIME ONE Potassium Chloride 40 meq 09/25/20 23:29 09/25/20 23:37 Potassium Chloride 10% 20 Meq/15 Ml Soln 30 Ml Ud Cup PO 09/25/20 23:30 40 meq ONETIME ONE Administration Potassium Chloride 40 meq 09/26/20 01:06 Potassium Chloride 10% 20 Meq/15 Ml Soln 30 Ml Ud Cup PO 09/26/20 01:07 ONETIME ONE Potassium Chloride 40 meq 09/26/20 01:09 09/26/20 01:14 Potassium Chloride 20 Meq Tab.Er PO 09/26/20 01:10 40 meq ONETIME ONE Administration Departure - Departure Time of Disposition: 01:07 Disposition: Home, Self-Care 01 Condition: Fair Clinical Impression: Vomiting, Diarrhea - Discharge Information *PRESCRIPTION DRUG MONITORING PROGRAM REVIEWED*: No *COPY OF PRESCRIPTION DRUG MONITORING REPORT IN PATIENT GERMAINE: No Prescriptions: Famotidine 40 mg PO BEDTIME #14 tablet Ondansetron [Zofran ODT] 4 mg PO Q6H PRN #8 tab.dis PRN Reason: Nausea/Vomiting Ondansetron [Zofran ODT] 4 mg PO Q6H PRN #8 tab.dis PRN Reason: Nausea/Vomiting Instructions: Nausea and Vomiting, Adult, [id number], Diarrhea, Adult, [id number] Referrals: Mk Gomez [Primary Care Provider] - Forms: ED Department Discharge Additional Instructions: You were evaluated today on an emergent basis. The rhythm strip of your heart was normal and all your of your work-up was normal. At this time you did have some low potassium which we did replenish. I recommend that you follow-up with your primary care physician given that you have had recurrent vomiting and diarrhea especially the evening when you eat late. I recommend that you use famotidine 20 mg in the evening and use Zofran 4 mg as needed for nausea. If you have any worsening symptoms such as chest pain, inability to tolerate fluids, feel dehydrated or any other concern you are welcome to return to the emergency department. Heydi Jeter [facility] [address] [place] [address] [place] [address] The patient is informed of any results of their evaluation and diagnostic workup and all questions are answered. They are given discharge instructions and return precautions. The patient is stable for discharge. The patient states they understand and agree with the plan and that they will return if their symptoms get worse or if they have any new concerns. The following information is given to patients seen in the emergency department who are being discharged to home. This information is to outline your options for follow-up care. We provide all patients seen in our emergency department with a follow-up referral. The need for follow-up, as well as the timing and circumstances, are variable depending upon the specifics of your emergency department visit. If you don't have a primary care physician on staff, we will provide you with a referral. We always advise you to contact your personal physician following an emergency department visit to inform them of the circumstance of the visit and for follow-up with them and/or the need for any referrals to a consulting specialist. The emergency department will also refer you to a specialist when appropriate. This referral assures that you have the opportunity for follow-up care with a specialist. All of these measure are taken in an effort to provide you with optimal care, which includes your follow-up. Under all circumstances we always encourage you to contact your private physician who remains a resource for coordinating your care. When calling for follow-up care, please make the office aware that this follow-up is from your recent emergency room visit. If for any reason you are refused follow-up, please contact the [facility] Emergency Department at and asked to speak to the emergency department charge nurse. Sepsis Event Note (ED) - Evaluation Sepsis Screening Result: No Definite Risk
[2020-09-26 01:27] VITALS: BP 114/68; PULSE 80
== END 2020-09-26 01:17 | disposition home or self-care (01) ==
LOC: MW.ED 21:55
DX: R11.2 Nausea with vomiting, unspecified (principal); R19.7 Diarrhea, unspecified; E78.00 Pure hypercholesterolemia, unspecified; I10 Essential (primary) hypertension; M19.90 Unspecified osteoarthritis, unspecified site; Z86.73 Personal history of transient ischemic attack (TIA), and cerebral infarction without residual deficits; Z88.8 Allergy status to other drugs, medicaments and biological substances; Z88.0 Allergy status to penicillin; Z91.048 Other nonmedicinal substance allergy status; Z79.02 Long term (current) use of antithrombotics/antiplatelets; Z79.899 Other long term (current) drug therapy
CPT/HCPCS: 36415; 71045; 80053; 81003; 83690; 83735; 84132; 84484; 85025; 93005; 99285; A9270; J7121; 99283

== ENCOUNTER 2023-12-10 22:59 | Emergency (ER) | payer MEDICARE ==
[2023-12-10 23:33] LABS: BASOPHILS ABSOLUTE AUTO 0.09 K/uL (0.00-0.20); BASOPHILS PERCENT AUTO 0.8 % (0.0-1.0); EOSINOPHILS ABSOLUTE AUTO 0.21 K/uL (0.00-0.45); EOSINOPHILS PERCENT AUTO 1.9 % (0.0-6.0); HEMOGLOBIN 12.9 g/dL (12.0-16.0); IMMATURE GRAN ABSOLUTE AUTO 0.04 K/uL (0.00-0.05); IMMATURE GRAN PERCENT AUTO 0.4 % (0.0-0.4); LYMPHOCYTES ABSOLUTE AUTO 2.74 K/uL (1.00-4.80); LYMPHOCYTES PERCENT AUTO 24.2 % (24.0-44.0); MEAN CORPUSCULAR HEMOGLOBIN 28.5 pg (28.0-32.0); MEAN CORPUSCULAR HGB CONC 32.3 g/dL (32.0-36.0); MEAN CORPUSCULAR VOLUME 88.3 fL (83.0-99.0); MEAN PLATELET VOLUME 9.2 fL (9.4-12.3); MONOCYTES ABSOLUTE AUTO 0.76 K/uL (0.00-0.80); MONOCYTES PERCENT AUTO 6.7 % (0.0-8.0); NEUTROPHILS ABSOLUTE AUTO 7.46 K/uL (1.80-7.70); PLATELET COUNT,PLT 305 K/uL (150-400); RED BLOOD CELL COUNT 4.53 M/uL (4.10-5.30)
[2023-12-10] MEDS: Morphine 4 MG/ML Syringe IVPUSH ONE (23:41)
[2023-12-10] MEDS: Sodium Chloride 0.9% 1,000 ML IV ONE (23:41)
[2023-12-10] MEDS: Sodium Chloride 0.9% 10 ML Syringe FLUSH PRN (23:43)
[2023-12-10] MEDS: Sodium Chloride 0.9% 2.5 ML Syringe FLUSH PRN (23:44)
[2023-12-10 23:50] LABS: A/G RATIO 0.8 (0.9-1.6); BILIRUBIN TOTAL 0.3 mg/dL (0.2-1.0); CALCIUM 8.9 mg/dL (8.5-10.1); CARBON DIOXIDE,CO2 30.1 mmol/L (21.0-32.0); EST CRCL DRUG DOSING (CG) 41.3 mL/min; MAGNESIUM 2.1 mg/dL (1.8-2.4); POTASSIUM,K 3.5 mmol/L (3.5-5.1); PROTEIN TOTAL,TP 6.7 g/dL (6.4-8.2)
[2023-12-11 00:40] LABS: APPEARANCE,URINE CLEAR; BILIRUBIN,URINE NEGATIVE (NEGATIVE); COLOR,URINE YELLOW; GLUCOSE,URINE NEGATIVE (NEGATIVE); KETONES,URINE NEGATIVE (NEGATIVE); LEUKOCYTE ESTERASE,URINE NEGATIVE (NEGATIVE); NITRITE,URINE NEGATIVE (NEGATIVE); OCCULT BLOOD,URINE NEGATIVE (NEGATIVE); PROTEIN,URINE NEGATIVE (NEGATIVE); UROBILINOGEN,URINE 0.2 EU/dL (<2.0)
[2023-12-11] MEDS: Iopamidol 755 MG/ML 500 ML Multipack Bottle IVPUSH ONE (00:48)
[2023-12-11 02:16] LABS: INR 0.96 (0.86-1.11); PTT,PARTIAL THROMBOPLSTIN TIME 23.5 SEC (23.9-30.7)
[2023-12-11] MEDS: Morphine 2 MG/ML SYRINGE IVPUSH ONE (02:57)
[2023-12-11 05:32] VITALS: PULSE 72
[2023-12-11 06:05] VITALS: BP 139/75
== END 2023-12-11 05:47 | disposition swing bed (61) ==
LOC: MW.ED 22:59
DX: S30.1XXA Contusion of abdominal wall, initial encounter (principal); I10 Essential (primary) hypertension; E78.00 Pure hypercholesterolemia, unspecified; Z90.49 Acquired absence of other specified parts of digestive tract; Z90.710 Acquired absence of both cervix and uterus; Z79.899 Other long term (current) drug therapy; Z88.0 Allergy status to penicillin; Z91.048 Other nonmedicinal substance allergy status; Z88.5 Allergy status to narcotic agent; X58.XXXA Exposure to other specified factors, initial encounter
CPT/HCPCS: 36415; 71250; 74177; 80053; 81003; 83690; 83735; 85025; 85610; 85730; 96374; 96376; 99285; J2270; J3490; J7030; Q9967; 99284

== ENCOUNTER 2024-12-10 00:32 | Inpatient (IN) | payer MEDICARE, OTHER ==
[2024-12-10] MEDS ORDERED: Sodium Chloride 0.9% 2.5 ML Syringe FLUSH PRN ×2 (00:43→08:04)
[2024-12-10] MEDS ORDERED: Sodium Chloride 0.9% 10 ML Syringe FLUSH PRN ×2 (00:43→08:04)
[2024-12-10 01:06] LABS: BASOPHILS ABSOLUTE AUTO 0.06 K/uL (0.00-0.20); BASOPHILS PERCENT AUTO 0.4 % (0.0-1.0); EOSINOPHILS ABSOLUTE AUTO 0.07 K/uL (0.00-0.45); EOSINOPHILS PERCENT AUTO 0.5 % (0.0-6.0); IMMATURE GRAN ABSOLUTE AUTO 0.13 K/uL (0.00-0.05); IMMATURE GRAN PERCENT AUTO 0.9 % (0.0-0.4); LYMPHOCYTES ABSOLUTE AUTO 1.41 K/uL (1.00-4.80); LYMPHOCYTES PERCENT AUTO 9.6 % (24.0-44.0); MEAN PLATELET VOLUME 9.0 fL (9.4-12.3); MONOCYTES ABSOLUTE AUTO 0.84 K/uL (0.00-0.80); MONOCYTES PERCENT AUTO 5.7 % (0.0-8.0); NEUTROPHILS ABSOLUTE AUTO 12.23 K/uL (1.80-7.70); NEUTROPHILS PERCENT AUTO 82.9 % (41.0-71.0); NRBC ABSOLUTE 0.00 K/uL (0.00-0.02); NRBC PERCENT 0.0 /100WBC (0.0-0.2); PLATELET COUNT,PLT 301 K/uL (150-400); RED BLOOD CELL COUNT 4.48 M/uL (4.10-5.30); WHITE BLOOD CELL COUNT,WBC 14.74 K/uL (3.9-11.3)
[2024-12-10 01:10] LABS: BICARBONATE,VENOUS 25.0 mEq/L (22-29); PCO2 VENOUS 40.0 mmHG (41-51); PH,VENOUS 7.41 (7.32-7.43); PO2 VENOUS 52.0 mmHG (35-45)
[2024-12-10 01:11] LABS: BASE EXCESS VENOUS 0.7 (-2.0-3.0)
[2024-12-10 01:43] LABS: A/G RATIO 0.7 (0.9-1.6); ALANINE AMINOTRANSFERASE,ALT 15.0 IU/L (14-63); ASPARTATE AMNIOTRANSFERASE,AST 20.0 IU/L (15-37); BILIRUBIN TOTAL 0.5 mg/dL (0.2-1.0); BLOOD UREA NITROGEN,BUN 21.0 mg/dL (7.0-18.0); CARBON DIOXIDE,CO2 26.3 mmol/L (21.0-32.0); CHLORIDE,CL 100.0 mmol/L (98-107); CREATININE 0.9 mg/dL (0.6-1.0); EST CRCL DRUG DOSING (CG) 45.12 mL/min; GLUCOSE RANDOM 118.0 mg/dL (74-106); POTASSIUM,K 3.8 mmol/L (3.5-5.1); PRO B-TYPE NATRIUR PEPT,BNPPRO 98.0 pg/mL (0-450); PROTEIN TOTAL,TP 6.7 g/dL (6.4-8.2); SODIUM,NA 135.0 mmol/L (136-145)
[2024-12-10 01:54] LABS: ESTIMATED GFR 64.0 mL/min (>60)
[2024-12-10] MEDS: cefTRIAXone 2 GM in Water For Injection, Sterile 20 ML IVPUSH ONE (01:56)
[2024-12-10] MEDS: Iopamidol 755 MG/ML 500 ML Multipack Bottle IVPUSH STA (03:09)
[2024-12-10 05:17] LABS: BASOPHILS ABSOLUTE AUTO 0.06 K/uL (0.00-0.20); BASOPHILS PERCENT AUTO 0.4 % (0.0-1.0); EOSINOPHILS ABSOLUTE AUTO 0.05 K/uL (0.00-0.45); EOSINOPHILS PERCENT AUTO 0.4 % (0.0-6.0); IMMATURE GRAN ABSOLUTE AUTO 0.06 K/uL (0.00-0.05); IMMATURE GRAN PERCENT AUTO 0.4 % (0.0-0.4); LYMPHOCYTES ABSOLUTE AUTO 1.70 K/uL (1.00-4.80); LYMPHOCYTES PERCENT AUTO 12.5 % (24.0-44.0); MEAN PLATELET VOLUME 9.0 fL (9.4-12.3); MONOCYTES ABSOLUTE AUTO 0.81 K/uL (0.00-0.80); MONOCYTES PERCENT AUTO 5.9 % (0.0-8.0); NEUTROPHILS ABSOLUTE AUTO 10.97 K/uL (1.80-7.70); NEUTROPHILS PERCENT AUTO 80.4 % (41.0-71.0); NRBC ABSOLUTE 0.00 K/uL (0.00-0.02); NRBC PERCENT 0.0 /100WBC (0.0-0.2); PLATELET COUNT,PLT 309 K/uL (150-400); RED BLOOD CELL COUNT 4.58 M/uL (4.10-5.30); WHITE BLOOD CELL COUNT,WBC 13.65 K/uL (3.9-11.3)
[2024-12-10] MEDS: methylPREDNISolone Sodium Succinate 125 MG/2 ML SDV IVPUSH ONE (06:10)
[2024-12-10 06:25] LABS: A/G RATIO 0.7 (0.9-1.6); ALANINE AMINOTRANSFERASE,ALT 14.0 IU/L (14-63); ASPARTATE AMNIOTRANSFERASE,AST 26.0 IU/L (15-37); BILIRUBIN TOTAL 0.4 mg/dL (0.2-1.0); BLOOD UREA NITROGEN,BUN 17.0 mg/dL (7.0-18.0); CARBON DIOXIDE,CO2 26.1 mmol/L (21.0-32.0); CHLORIDE,CL 104.0 mmol/L (98-107); CREATININE 0.9 mg/dL (0.6-1.0); EST CRCL DRUG DOSING (CG) 45.12 mL/min; ESTIMATED GFR 64.0 mL/min (>60); GLUCOSE RANDOM 119.0 mg/dL (74-106); POTASSIUM,K 3.9 mmol/L (3.5-5.1); PROTEIN TOTAL,TP 6.6 g/dL (6.4-8.2); SODIUM,NA 140.0 mmol/L (136-145)
[2024-12-10] MEDS ORDERED: Ondansetron 4 MG/2 ML SDV IVPUSH PRN (08:04)
[2024-12-10] MEDS ORDERED: Albuterol 0.083% 2.5 MG/3 ML Neb Soln NEB PRN (08:04)
[2024-12-10] MEDS: Cholecalciferol (Vitamin D3) 25 MCG Tab PO SCH (11:39)
[2024-12-10] MEDS: guaiFENesin 100 MG/5 ML Soln 5 ML UD Cup PO PRN (11:42)
[2024-12-10] MEDS: Heparin Sodium 5,000 Units/ML Vial SUBCUT SCH (11:42)
[2024-12-10] MEDS: Formoterol/Mometasone 200-5 MCG 8.8 GM Inhaler INH SCH (18:18)
[2024-12-10] MEDS: methylPREDNISolone Sodium Succinate 40 MG/1 ML SDV IVPUSH SCH (18:27)
[2024-12-11] MEDS: cefTRIAXone 1 GM in Water For Injection, Sterile 10 ML IVPUSH SCH (00:36)
[2024-12-11 06:05] LABS: BASOPHILS ABSOLUTE AUTO 0.02 K/uL (0.00-0.20); BASOPHILS PERCENT AUTO 0.1 % (0.0-1.0); EOSINOPHILS ABSOLUTE AUTO 0.00 K/uL (0.00-0.45); EOSINOPHILS PERCENT AUTO 0.0 % (0.0-6.0); IMMATURE GRAN ABSOLUTE AUTO 0.17 K/uL (0.00-0.05); IMMATURE GRAN PERCENT AUTO 1.3 % (0.0-0.4); LYMPHOCYTES ABSOLUTE AUTO 0.91 K/uL (1.00-4.80); LYMPHOCYTES PERCENT AUTO 6.8 % (24.0-44.0); MEAN PLATELET VOLUME 9.6 fL (9.4-12.3); MONOCYTES ABSOLUTE AUTO 0.44 K/uL (0.00-0.80); MONOCYTES PERCENT AUTO 3.3 % (0.0-8.0); NEUTROPHILS ABSOLUTE AUTO 11.85 K/uL (1.80-7.70); NEUTROPHILS PERCENT AUTO 88.5 % (41.0-71.0); NRBC ABSOLUTE 0.00 K/uL (0.00-0.02); NRBC PERCENT 0.0 /100WBC (0.0-0.2); PLATELET COUNT,PLT 323 K/uL (150-400); RED BLOOD CELL COUNT 4.26 M/uL (4.10-5.30); WHITE BLOOD CELL COUNT,WBC 13.39 K/uL (3.9-11.3)
[2024-12-11 06:42] LABS: BLOOD UREA NITROGEN,BUN 20.0 mg/dL (7.0-18.0); CARBON DIOXIDE,CO2 23.9 mmol/L (21.0-32.0); CHLORIDE,CL 104.0 mmol/L (98-107); CREATININE 0.8 mg/dL (0.6-1.0); EST CRCL DRUG DOSING (CG) 50.75 mL/min; GLUCOSE RANDOM 129.0 mg/dL (74-106); POTASSIUM,K 4.3 mmol/L (3.5-5.1); SODIUM,NA 139.0 mmol/L (136-145)
[2024-12-11 06:44] LABS: ESTIMATED GFR 74.0 mL/min (>60)
[2024-12-11 12:04] VITALS: BP 136/71; PULSE 64
[2024-12-12 05:07] LABS: BORDETELLA PARAPERT IS1001 Not Detected (Not Detected)
== END 2024-12-11 11:38 | disposition home or self-care (01) | DRG 193 ==
LOC: MW.ED 00:32 → MW.MS 07:47 → OBSVTOIN 07:47
PROVIDERS: ADMIT Internal Medicine; ATTEND Internal Medicine
DX: J18.9 Pneumonia, unspecified organism (principal); R06.02 Shortness of breath; R05.2 Subacute cough; M79.10 Myalgia, unspecified site; R91.1 Solitary pulmonary nodule; R09.02 Hypoxemia; J96.01 Acute respiratory failure with hypoxia; J44.1 Chronic obstructive pulmonary disease with (acute) exacerbation; J44.0 Chronic obstructive pulmonary disease with (acute) lower respiratory infection; E78.00 Pure hypercholesterolemia, unspecified; I10 Essential (primary) hypertension; M19.90 Unspecified osteoarthritis, unspecified site; F32.A Depression, unspecified; M81.0 Age-related osteoporosis without current pathological fracture; Z96.649 Presence of unspecified artificial hip joint; Z96.659 Presence of unspecified artificial knee joint; R91.8 Other nonspecific abnormal finding of lung field; I25.10 Atherosclerotic heart disease of native coronary artery without angina pectoris; T81.82XD Emphysema (subcutaneous) resulting from a procedure, subsequent encounter; Z88.0 Allergy status to penicillin; Z88.8 Allergy status to other drugs, medicaments and biological substances; Z79.51 Long term (current) use of inhaled steroids; Z79.02 Long term (current) use of antithrombotics/antiplatelets; Z79.899 Other long term (current) drug therapy; Z86.73 Personal history of transient ischemic attack (TIA), and cerebral infarction without residual deficits; Z90.49 Acquired absence of other specified parts of digestive tract; Z87.891 Personal history of nicotine dependence; Z90.89 Acquired absence of other organs; Z90.710 Acquired absence of both cervix and uterus
CPT/HCPCS: 36415; 71045; 71275; 80053 ×2; 82803; 83605; 83735; 83880; 84484; 85025 ×2; 85379; 87040 ×2; 87428; 93005; 96365; 96375; 99285; A4216; A9270 ×2; J0696; J1271; J2919; Q9967; 80048; 87486; 87581; 87633; 93010; 94640; J1644